=== PATIENT | male | born 1935 | race Caucasian/White ===

== ENCOUNTER 2018-03-04 10:17 | Outpatient (CLI) | payer MEDICARE | END 2018-03-04 10:18 | disposition home or self-care (01) | LOC: CTENTCT 10:17 | PROVIDERS: ATTEND Specialist | DX: J01.80 Other acute sinusitis (principal) | CPT/HCPCS: 70486 ==

== ENCOUNTER 2018-07-02 20:30 | Outpatient (CLI) | payer MEDICARE | END 2018-07-02 20:31 | disposition home or self-care (01) | LOC: SLEEPLAB 20:30 | PROVIDERS: ATTEND Family Medicine | DX: G47.10 Hypersomnia, unspecified (principal); R53.83 Other fatigue; G31.84 Mild cognitive impairment of uncertain or unknown etiology; K21.9 Gastro-esophageal reflux disease without esophagitis; F41.9 Anxiety disorder, unspecified; G47.00 Insomnia, unspecified; I10 Essential (primary) hypertension; I25.10 Atherosclerotic heart disease of native coronary artery without angina pectoris; I21.9 Acute myocardial infarction, unspecified | CPT/HCPCS: 95811 ==

== ENCOUNTER 2018-10-11 09:34 | Emergency (ER) | payer MEDICARE | END 2018-10-11 10:39 | disposition left against medical advice (07) | LOC: ERS 09:34 | DX: Z53.21 Procedure and treatment not carried out due to patient leaving prior to being seen by health care provider (principal) ==

== ENCOUNTER 2019-08-01 10:01 | Emergency (ER) | payer MEDICARE | END 2019-08-01 10:55 | disposition home or self-care (01) | LOC: ERS 10:01 | DX: B02.9 Zoster without complications (principal); E11.9 Type 2 diabetes mellitus without complications; K21.9 Gastro-esophageal reflux disease without esophagitis; E78.5 Hyperlipidemia, unspecified; I10 Essential (primary) hypertension; Z79.899 Other long term (current) drug therapy | CPT/HCPCS: 99282 ==

== ENCOUNTER 2019-09-02 12:34 | Outpatient (CLI) | payer MEDICARE ==
--- NOTE | 2019-09-02 12:53 | RAD ---
XR Chest Pa Lat STANDARD HISTORY: Cough COMPARISON: 06/08/2017 FINDINGS: The heart size is borderline. The lungs are well expanded without focal areas of consolidat ion, pneumothorax or pleural effusions. Chronic parenchymal changes are again seen. IMPRESSION: No radiographic evidence of acute cardiopulmonary process.
== END 2019-09-02 12:35 | disposition home or self-care (01) ==
LOC: BICRAD 12:34
PROVIDERS: ATTEND Family Medicine
DX: R05 Cough (principal)
CPT/HCPCS: 71046

== ENCOUNTER 2019-09-18 11:17 | Emergency (ER) | payer MEDICARE ==
[2019-09-18] MEDS ORDERED: Bacitracin 1 PK ONE (12:20)
[2019-09-18] MEDS ORDERED: Adacel (T-DAP) 0.5 ML SYRINGE ONE (12:23)
--- NOTE | 2019-09-18 12:54 | RAD ---
RIGHT HAND 3 VIEWS: INDICATION: Trauma. FINDINGS: Carpals appear intact. Degenerative change at the 1st carpometacarpal joint. Mild narrowing and DJD at the MCP and IP joints most prominent at the DIP joints. No fracture or acute abnormality. POS: OFF
== END 2019-09-18 12:45 | disposition home or self-care (01) ==
LOC: ERS 11:17
DX: S60.221A Contusion of right hand, initial encounter (principal); S61.401A Unspecified open wound of right hand, initial encounter; S80.211A Abrasion, right knee, initial encounter; E11.9 Type 2 diabetes mellitus without complications; K21.9 Gastro-esophageal reflux disease without esophagitis; I49.9 Cardiac arrhythmia, unspecified; E78.5 Hyperlipidemia, unspecified; E78.00 Pure hypercholesterolemia, unspecified; I10 Essential (primary) hypertension; Z79.899 Other long term (current) drug therapy; Z79.84 Long term (current) use of oral hypoglycemic drugs; W18.30XA Fall on same level, unspecified, initial encounter
CPT/HCPCS: 90471; 90715; 99283

== ENCOUNTER 2020-06-06 19:21 | Inpatient (IN) | payer MEDICARE, OTHER ==
[~2020-06-06 19:21] MED LIST: Iopamidol-370 76% 500 ML 1 ML ONE
[2020-06-06] MEDS ORDERED: Sucralfate 1 GM/10 ML UDCUP ONE (19:47)
[2020-06-06] MEDS ORDERED: Ondansetron PF 4 MG/2 ML Vial ONE (19:47)
[2020-06-06 19:52] LABS: #Basophils 0.1 thou/uL (0.0-0.2); #Lymphocytes 1.6 thou/uL (1.20-3.40); #Monocytes 0.7 thou/uL (0.11-0.59); #Neutrophils 5.5 thou/uL (1.40-6.50); %Basophils 0.7 % (0.0-1.0); %Eosinophils 0.4 % (0.0-10.0); %Monocytes 8.7 % (0.0-10.0); %Neutrophils 70.2 % (42.0-75.0); Hemoglobin 14.7 g/dL (14.0-18.0); Mean Corpuscular HGB CONC 33.9 g/dL (32.0-36.0); Mean Corpuscular Hemoglobin 32.3 pg (27.0-31.0); Mean Corpuscular Volume 95.1 fL (78.0-98.0); Mean Platelet Volume 7.8 fL (7.4-10.4); Platelet Count 281 thou/uL (130-400); RBC Distribution Width 11.6 % (11.5-14.5); Red Blood Cell (RBC) Count 4.57 mill/uL (4.70-6.10); White Blood Cell (WBC) Count 7.8 thou/uL (4.8-10.8)
[2020-06-06 20:17] LABS: ALT (SGPT) 14 U/L (8-55); AST (SGOT) 21 U/L (5-34); Albumin 3.8 g/dL (3.4-4.8); Alkaline Phosphatase 91 U/L (40-110); Anion Gap 14 mmol/L (10-20); BUN (Urea Nitrogen) 22 mg/dL (8.4-25.7); Bilirubin, Total 0.7 mg/dL (0.2-1.2); Calc. Creatinine Clearance 0 mL/min (70-130); Calcium 9.4 mg/dL (7.8-10.44); Carbon Dioxide 23 mmol/L (23-31); Chloride 103 mmol/L (98-107); Estimated GFR-MDRD 76; Globulin 3.3 g/dL (2.4-3.5); Glucose 139 mg/dL (83-110); Lipase 19 U/L (8-78); Potassium 3.8 mmol/L (3.5-5.1); Protein, Total 7.1 g/dL (5.8-8.1); Sodium 136 mmol/L (136-145)
--- NOTE | 2020-06-06 20:48 | CT ---
CT abdomen and pelvis with IV contrast HISTORY: Abdomen pain. Nausea. Vomiting. FINDINGS: Calcification throughout the coronary arteries and other arterial structures. Significant s tenoses at the origins of the celiac trunk and superior mesenteric artery. Small hiatal hernia. There is a 0.2 cm calculus within a nondilated calyx at the central portion of the left kidney. A 2.5 cm cyst involves the anterior lateral left renal cortex. Large amount of stool is present within the mid to distal colon and rectum. Involving the right colon and proximal transverse colon, there is circumferential wall thickening and decompression with minimal adjacent fat stranding. No focal mass is evident. No evidence of bowel obstruction. IMPRESSION : Long segment mild inflammation appearance of the right colon and proximal transverse colon. Cause for long segment colitis is not evident. Possible infection? Constipation. Prominent atherosclerosis. 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 Small hiatal hernia. Tiny nonobstructing right renal calculus.
[2020-06-06 21:14] LABS: Bilirubin Negative (Negative); Blood, Urine Negative (Negative); Clarity Clear (Clear); Glucose, Urine (Dipstick) Normal (Negative); Ketone, Urine Negative (Negative); Leukocyte Negative Leu/uL (Negative); Nitrite Negative (Negative); Protein, Urine (Dipstick) Negative (Neg-Trace); Specific Gravity, Urine 1.029 (1.002-1.036); Urobilinogen Normal mg/dL (Less than 2)
[2020-06-06] MEDS ORDERED: metroNIDAZOLE 500 MG/100 ML BAG ONE (22:04)
[2020-06-06] MEDS ORDERED: Bisacodyl 5 MG TAB PO PRN (22:58)
[2020-06-06] MEDS ORDERED: Senokot S 8.6-50 MG TAB PO PRN (22:58)
[2020-06-06] MEDS ORDERED: HYDROmorphone 0.5 MG/0.5 ML SYRINGE SLOW IVP PRN (23:03)
[2020-06-06] MEDS ORDERED: Dextrose 5% in Water 1,000 ML IV PRN (23:07)
[2020-06-06] MEDS ORDERED: Dextrose 50% Abboject 50 ML SYRINGE SLOW IVP PRN (23:07)
[2020-06-06] MEDS ORDERED: Insulin Regular 300 UNITS/3 ML VIAL SC PRN (23:07)
--- NOTE | 2020-06-07 02:00 | HP ---
REASON FOR ADMISSION: Abdominal pain. HISTORY OF PRESENT ILLNESS: This is an 85-year-old male patient, who has been having abdominal pain and presented to the emergency room approximately 5 days ago with nausea and vomiting, did receive IV antiemetics, felt better, was sent home and has been doing well until today. He had recurrence of his symptoms. Also abdominal pain described as cramping in nature involving his whole abdomen. He is somewhat of a poor historian. He reports to me that his last bowel movement was three days ago. In the emergency room, a CAT scan did reveal possible colitis and patient did have two bowel movements. I did inspect the last one and I did not see any blood in the stool. PAST MEDICAL HISTORY: 1. Diabetes. 2. GERD. 3. High cholesterol. 4. Arrhythmia/bradycardia. 5. High blood pressure. 6. Memory issues. ALLERGIES: TO CODEINE. SOCIAL HISTORY: He drinks socially. Does not smoke. REVIEW OF SYSTEMS: All systems reviewed except for the above mentioned, found to be negative. FAMILY HISTORY: Negative for premature coronary artery disease. PHYSICAL EXAMINATION: GENERAL: He is awake, alert, oriented, does not appear in distress. VITAL SIGNS: His blood pressure is 140/84, pulse is 55, saturating 96% on room air. HEENT: Head is nontraumatic, normocephalic. Pupils equal, reactive. Extraocular motors are intact. Nonicteric sclerae. Well injected conjunctivae. Oral mucosa normal. Nasal mucosa normal. NECK: Supple. No adenopathy. No murmur. Thyroid is not palpable. Trachea is midline. No supraclavicular adenopathy. HEART: S1, S2 regular. Systolic murmur is heard. LUNGS: Clear to auscultation bilaterally. No wheezes, rhonchi, no crackles. Bowel sounds are decreased. ABDOMEN: Tender but overall soft. No hepatosplenomegaly. No lower extremity edema. No cyanosis noted. NEUROLOGIC: Cranial nerves 2 through 12 within normal limits. Normal motor function. Normal sensory function. Normal reflexes. LABORATORY DATA: Blood work shows WBC 7.8, hemoglobin of 14.7, and platelets of 281. Sodium of 136, potassium 3.8, bicarb 23, creatinine 0.94, glucose 139. Urinalysis does not show any evidence of infection. CT of the abdomen shows long segment mild inflammation in the appearance of right colon and proximal transverse colon. Cause for long segment colitis is not evident. Possible infection. Constipation. Prominent atherosclerosis. 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 Small hiatal hernia. Tiny nonobstructing right renal calculus. EKG shows sinus bradycardia. On the monitor, he does have a lot of PVCs and PACs. ASSESSMENT AND PLAN: This is an 85-year-old male patient, who is presenting with abdominal pain secondary to possible colitis. Incidental finding of probable stenosis of celiac and mesenteric artery. Currently feeling much better after moving his bowels twice. He was constipated and does take Amitiza at home, which makes me to believe that he has chronic constipation. GI: The patient has possible colitis. We will cover him with IV Cipro and Flagyl and in case it is ischemic colitis, we will have him on IV fluids. Since the CAT scan did mention probable stenosis of the celiac and mesenteric artery, we will have a consultation for vascular surgery. Cardiac: The patient is bradycardic and maybe has some form of block. He is followed by Dr. Morales. We will consult him to weigh in on his bradycardia. We will continue with amlodipine for his high blood pressure since it does not affect the heart rate. In regard to his diabetes, he will be on insulin sliding scale and we will maintain him on levothyroxine. I will hold glipizide since he will be n.p.o. In regards of his mild dementia, will continue with Aricept. For deep venous thrombosis prophylaxis, he will be on Lovenox subcutaneously. I did discuss with him his code status. He wishes to be a full code. Job ID: [id number]
[2020-06-07 02:18] LABS: #Basophils 0.1 thou/uL (0.0-0.2); #Lymphocytes 0.9 thou/uL (1.20-3.40); #Neutrophils 9.5 thou/uL (1.40-6.50); %Basophils 0.4 % (0.0-1.0); %Eosinophils 0.1 % (0.0-10.0); %Lymphocytes 8.2 % (21.0-51.0); %Monocytes 8.9 % (0.0-10.0); %Neutrophils 82.5 % (42.0-75.0); Hemoglobin 14.7 g/dL (14.0-18.0); Mean Corpuscular HGB CONC 35.3 g/dL (32.0-36.0); Mean Corpuscular Hemoglobin 33.4 pg (27.0-31.0); Mean Corpuscular Volume 94.9 fL (78.0-98.0); Mean Platelet Volume 7.4 fL (7.4-10.4); Platelet Count 238 thou/uL (130-400); RBC Distribution Width 11.6 % (11.5-14.5); Red Blood Cell (RBC) Count 4.38 mill/uL (4.70-6.10); White Blood Cell (WBC) Count 11.5 thou/uL (4.8-10.8)
[2020-06-07] MEDS: Sodium Chloride 0.9% 1,000 ML IV SCH ×2 (02:29→17:16)
[2020-06-07 03:32] LABS: Anion Gap 13 mmol/L (10-20); BUN (Urea Nitrogen) 19 mg/dL (8.4-25.7); Calc. Creatinine Clearance 60 mL/min (70-130); Calcium 8.5 mg/dL (7.8-10.44); Carbon Dioxide 23 mmol/L (23-31); Chloride 104 mmol/L (98-107); Estimated GFR-MDRD 78; Glucose 156 mg/dL (83-110); Potassium 3.2 mmol/L (3.5-5.1); Sodium 137 mmol/L (136-145)
[2020-06-07] MEDS ORDERED: Polyethylene Glycol 3350 17 GM Packet PO PRN (04:10)
[2020-06-07] MEDS ORDERED: Loratadine 10 MG TAB PO PRN (04:10)
[2020-06-07] MEDS: Levothyroxine Sodium 50 MCG TAB PO SCH (05:54)
[2020-06-07] MEDS: metroNIDAZOLE 500 MG in Premix Bag 1 BAG IVPB SCH ×3 (05:54→21:14)
--- NOTE | 2020-06-07 08:12 | PDOC.HOSPP ---
- Subjective Encounter Date: 06/07/20 Encounter Time: 08:11 Subjective: says he hasnt been able to eat for days/weeks due to anorexia. says hasnt had BM because he cant eat - Objective Vital Signs & Weight: Vital Signs (12 hours) Temp Pulse Resp BP Pulse Ox 06/07/20 07:30 97.6 F 62 18 148/67 H 96 06/07/20 03:23 98.4 F 48 L 20 127/62 97 06/07/20 01:15 96.3 F L 68 20 126/59 L 95 Weight Weight 162 lb 8 oz I&O: 06/06/20 06/07/20 06/08/20 06:59 06:59 06:59 Intake Total 320 Output Total 225 Balance 95 Result Diagrams: 06/07/20 02:12 06/07/20 02:12 Additional Labs: Accuchecks 06/07/20 06/06/20 06:08 20:00 POC Glucose 123 H 135 H Hospitalist ROS - Medication Medications: Active Medications Generic Name Dose Route Start Last Admin Trade Name Edwina PRN Reason Stop Dose Admin Metronidazole 500 mg/ Device 100 mls @ 100 mls/hr 06/07/20 06:00 06/07/20 05: 54 IVPB 100 mls Q8HR TRACEY Administration Sodium Chloride 1,000 mls @ 75 mls/hr 06/06/20 23:59 06/07/20 02:29 Normal Saline 0.9% IV 1,000 mls .[id number] TRACEY Administration Levothyroxine Sodium 50 mcg 06/07/20 06:00 06/07/20 05:54 Synthroid PO 50 mcg 0600 TRACEY Administration - Exam General Appearance: awake alert General - other findings: oriented x 3 Neck: no JVD Heart: no murmur, irregular Respiratory: CTAB Gastrointestinal: soft, non-tender, normal bowel sounds, no hepatomegaly, no splenomegaly, no bruit Extremities: no edema Hosp A/P (1) Colitis Code(s): K52.9 - NONINFECTIVE GASTROENTERITIS AND COLITIS, UNSPECIFIED Status : Acute (2) Anorexia Code(s): R63.0 - ANOREXIA Status: Acute (3) Bradyarrhythmia Code(s): I49.8 - OTHER SPECIFIED CARDIAC ARRHYTHMIAS Status: Acute (4) Second degree heart block Code(s): I44.1 - ATRIOVENTRICULAR BLOCK, SECOND DEGREE Status: Acute (5) HTN (hypertension) Code(s): I10 - ESSENTIAL (PRIMARY) HYPERTENSION Status: Acute Qualifiers: Hypertension type: essential hypertension Qualified Code(s): I10 - Essential (primary) hypertension (6) DM type 2 (diabetes mellitus, type 2) Status: Acute Qualifiers: Diabetes mellitus bed bug exterminator insulin use: without bed bug exterminator use Diabetes mellitus complication status: without complication Qualified Code(s): E11.9 - Type 2 diabetes mellitus without complications - Plan will cont antibx for colitis at present Cardiology for bradyarrthmia cont accu/ss for the present
[2020-06-07] MEDS: Ondansetron PF 4 MG/2 ML Vial IVP PRN (08:16)
[2020-06-07] MEDS: Enoxaparin Sodium 40 MG/0.4 ML SYRINGE SC SCH (08:17)
[2020-06-07] MEDS: Lubiprostone 8 MCG CAP PO SCH ×2 (08:25→17:16)
[2020-06-07 13:19] LABS: SARS-CoV-2 MS2 Positive; SARS-CoV-2 N Gene Negative; SARS-CoV-2 S Gene Negative; SARS-CoV-2 by NAA Not Detected (NotDetected); SARS-CoV-2 orf1ab Negative
[2020-06-07] MEDS: Amlodipine 5 MG TAB PO SCH (19:37)
--- NOTE | 2020-06-07 20:29 | CON ---
DATE OF CONSULTATION: 06/07/2020 REASON FOR CONSULTATION: Bradycardia. HISTORY OF PRESENT ILLNESS: Mr. John is a very pleasant 85-year-old gentleman, admitted with abdominal discomfort. He states that he does not want to eat. He has a vague discomfort in the lower abdominal area and thought to have some colitis. He is being treated with antibiotics. The patient has also had significant bradycardia as will be outlined below. He has no chest pain or pressure. No lightheadedness. No syncope or near syncope. The patient has a history of long first-degree AV block, history of diabetes, history of mild mitral regurgitation. The patient has history of premature ventricular contraction. Medications as an outpatient, he was on no medications to slow the heart rate. Previous echocardiogram and stress testing, he did have a stress test in 2016, which was a normal nuclear medicine stress test. MEDICATIONS: 1. Atorvastatin. 2. Amlodipine. 3. Losartan-HCT. REVIEW OF SYSTEMS: GENERAL: He has lost some weight, otherwise negative. VISION: No changes. HEARING: No changes. PULMONARY: No cough or wheezing. CARDIAC: No chest pain. GASTROINTESTINAL: As outlined above. PHYSICAL EXAMINATION: GENERAL: This is a very pleasant, 85-year-old gentleman, resting comfortably. He said he has a vague discomfort in his lower abdomen. VITAL SIGNS: Blood pressure 162/74, pulse is 40. NECK: Veins are normal. Carotid, normal upstrokes. LUNGS: Clear. CARDIAC: Normal S1, normal S2. He is bradycardic. ABDOMEN: Soft and nontender. EXTREMITIES: Warm and dry. No clubbing. No cyanosis. No edema. DIAGNOSTIC STUDIES: Previous EKG, sinus rhythm with a first-degree AV block, the EKG done in December 14, the heart rate was 62, the KS interval was 350 milliseconds. EKG now, the patient has some periods of second-degree AV block, type 1. Sometimes the heart rate gets down to the 40s, some 2:1 AV block. ASSESSMENT: 1. Bradycardia. 2. AV florentino disease with normal QRS. 3. Abdominal pain, thought to be a mild colitis. 4. Mild coronary artery disease. Catheterization in 2003 had minimal nonobstructive plaque. PLAN: 1. Echocardiogram. 2. We will discuss with Dr. Woodson, with a narrow QRS, he will be pacing the ventricle consistently, the question is whether the patient should could be considered with that having His bundle pacer or standard pacemaker or even biventricular based on the current criteria, if ejection fraction is normal, biventricular would not be indicated, consideration for His bundle could be given, we will ask Dr. Woodson to see the patient. Job ID: [id number]
[2020-06-07] MEDS: Donepezil HCl 10 MG TAB PO SCH (21:05)
[2020-06-07] MEDS: Citalopram 10 MG TAB PO SCH (21:07)
[2020-06-08 00:43] LABS: Anion Gap 10 mmol/L (10-20); Carbon Dioxide 24 mmol/L (23-31); Chloride 102 mmol/L (98-107); Magnesium 1.8 mg/dL (1.6-2.6); Sodium 133 mmol/L (136-145)
[2020-06-08 00:45] LABS: Potassium 2.9 mmol/L (3.5-5.1)
[2020-06-08] MEDS ORDERED: Potassium Chloride 40 MEQ in Premix Bag 1 BAG IVPB SCH (01:15)
[2020-06-08] MEDS ORDERED: Potassium Chloride 20 MEQ in Premix Bag 1 BAG IVPB SCH (01:30)
[2020-06-08] MEDS ORDERED: Acetaminophen 325 MG TAB PO PRN (03:27)
[2020-06-08] MEDS ORDERED: Potassium Chloride 20 MEQ TAB PO SCH (03:30)
[2020-06-08] MEDS: Sodium Chloride 0.9% 1,000 ML IV SCH ×2 (05:22→17:40)
[2020-06-08] MEDS: Levothyroxine Sodium 50 MCG TAB PO SCH (05:31)
[2020-06-08] MEDS: metroNIDAZOLE 500 MG in Premix Bag 1 BAG IVPB SCH ×3 (05:31→22:05)
[2020-06-08 07:47] LABS: Anion Gap 13 mmol/L (10-20); BUN (Urea Nitrogen) 10 mg/dL (8.4-25.7); Calc. Creatinine Clearance 72 mL/min (70-130); Calcium 8.5 mg/dL (7.8-10.44); Carbon Dioxide 20 mmol/L (23-31); Chloride 105 mmol/L (98-107); Estimated GFR-MDRD Greater than 90; Glucose 107 mg/dL (83-110); Magnesium 1.9 mg/dL (1.6-2.6); Potassium 3.5 mmol/L (3.5-5.1); Sodium 134 mmol/L (136-145)
--- NOTE | 2020-06-08 07:58 | PDOC.HOSPP ---
- Subjective Encounter Date: 06/08/20 Encounter Time: 07:56 Subjective: resting comfortably. no nausea, abd pain, diarrhea - Objective Vital Signs & Weight: Vital Signs (12 hours) Temp Pulse Resp BP Pulse Ox 06/08/20 07:07 97.9 F 53 L 18 164/80 H 96 06/08/20 04:00 152/75 H 06/08/20 00:00 60 28 H 138/78 94 L 06/07/20 19:57 95 Weight Admit Weight 162 lb 8 oz Weight 158 lb 11.2 oz I&O: 06/07/20 06/08/20 06/09/20 06:59 06:59 06:59 Intake Total 320 390 Output Total 225 2350 Balance 95 -1960 Result Diagrams: 06/07/20 02:12 06/08/20 07:19 Additional Labs: Accuchecks 06/08/20 06/08/20 06/07/20 06:01 00:11 17:24 POC Glucose 124 H 130 H 104 06/07/20 12:13 POC Glucose 130 H Hospitalist ROS - Medication Medications: Active Medications Generic Name Dose Route Start Last Admin Trade Name Freq PRN Reason Stop Dose Admin Acetaminophen 650 mg 06/08/20 03:27 06/08/20 03:42 Tylenol PO 650 mg Q4H PRN Administration Headache/Fever or Pain Amlodipine Besylate 5 mg 06/07/20 21:00 06/07/20 19:37 Norvasc PO 5 mg HS TRACEY Administration Citalopram Hydrobromide 10 mg 06/07/20 21:00 06/07/20 21:07 Celexa PO 10 mg HS TRACEY Administration Donepezil HCl 10 mg 06/07/20 21:00 06/07/20 21:05 Aricept PO 10 mg HS TRACEY Administration Enoxaparin Sodium 40 mg 06/07/20 09:00 06/07/20 08:17 Lovenox SC 40 mg 0900 TRACEY Administration Ciprofloxacin/Dextrose 400 mg/ 200 mls @ 200 mls/hr 06/07/20 11:00 06/07/20 22:40 Device IVPB 200 mls 1100,2300 TRACEY Administration Metronidazole 500 mg/ Device 100 mls @ 100 mls/hr 06/07/20 06:00 06/08/20 05: 31 IVPB 100 mls Q8HR TRACEY Administration Sodium Chloride 1,000 mls @ 75 mls/hr 06/06/20 23:59 06/08/20 05:22 Normal Saline 0.9% IV 1,000 mls .[id number] TRACEY Administration Levothyroxine Sodium 50 mcg 06/07/20 06:00 06/08/20 05:31 Synthroid PO 50 mcg 0600 TRACEY Administration Lubiprostone 8 mcg 06/07/20 08:00 06/07/20 17:16 Amitiza PO Not Given BID-WM TRACEY Ondansetron HCl 4 mg 06/06/20 23:05 06/07/20 08:16 Zofran IVP 4 mg Q6H PRN Administration Nausea/Vomiting Pantoprazole Sodium 40 mg 06/07/20 09:00 06/07/20 08:17 Protonix PO 40 mg DAILY TRACEY Administration - Exam General Appearance: awake alert Neck: no JVD Heart: no murmur, irregular Respiratory: CTAB Gastrointestinal: soft, non-tender, non-distended, normal bowel sounds Extremities: no edema Hosp A/P (1) Colitis Code(s): K52.9 - NONINFECTIVE GASTROENTERITIS AND COLITIS, UNSPECIFIED Status : Acute (2) Anorexia Code(s): R63.0 - ANOREXIA Status: Acute (3) Bradyarrhythmia Code(s): I49.8 - OTHER SPECIFIED CARDIAC ARRHYTHMIAS Status: Acute (4) Second degree heart block Code(s): I44.1 - ATRIOVENTRICULAR BLOCK, SECOND DEGREE Status: Acute (5) HTN (hypertension) Code(s): I10 - ESSENTIAL (PRIMARY) HYPERTENSION Status: Acute Qualifiers: Hypertension type: essential hypertension Qualified Code(s): I10 - Essential (primary) hypertension (6) DM type 2 (diabetes mellitus, type 2) Status: Acute Qualifiers: Diabetes mellitus long term care social worker insulin use: without long term care social worker use Diabetes mellitus complication status: without complication Qualified Code(s): E11.9 - Type 2 diabetes mellitus without complications - Plan appreciate cardiology input- Dr Woodson EP, to see re pacemaker will cont antibx for colitis at present cont accu/ss for the present
[2020-06-08] MEDS: Enoxaparin Sodium 40 MG/0.4 ML SYRINGE SC SCH (08:25)
[2020-06-08] MEDS: Lubiprostone 8 MCG CAP PO SCH ×2 (08:25→18:09)
--- NOTE | 2020-06-08 09:27 | PDOC.FMACP ---
Advance Care Planning - Problem (1) Palliative care encounter Status: Acute Code(s): Z51.5 - ENCOUNTER FOR PALLIATIVE CARE (2) Anorexia Status: Acute Code(s): R63.0 - ANOREXIA (3) Bradyarrhythmia Status: Acute Code(s): I49.8 - OTHER SPECIFIED CARDIAC ARRHYTHMIAS (4) Colitis Status: Acute Code(s): K52.9 - NONINFECTIVE GASTROENTERITIS AND COLITIS, UNSPECIFIED (5) HTN (hypertension) Status: Acute Code(s): I10 - ESSENTIAL (PRIMARY) HYPERTENSION Qualifiers: Hypertension type: essential hypertension Qualified Code(s): I10 - Essential (primary) hypertension (6) Second degree heart block Status: Acute Code(s): I44.1 - ATRIOVENTRICULAR BLOCK, SECOND DEGREE - Note Participants: patient, palliative care Summary: Palliative care introduced Advanced Care Planning, opportunity to decline offered. The diagnosis, prognosis and goals of care were discussed. Appropriate forms and documentation to accomplish the goals of care were discussed. All questions were answered. Confirmed full resuscitation status, patient declined to complete MPOA as his son would be his surrogate decision maker. Information provided in the event they elected to complete MPOA and Directive to Physician. Time Spent (mins): 20
--- NOTE | 2020-06-08 16:31 | CON ---
DATE OF CONSULTATION: 06/08/2020 HISTORY OF PRESENT ILLNESS: I am seeing Mr. John at our [facility] Telemetry Floor as an electrophysiology reimbursement consultant and his problems are : 1. Marked bradycardia. a. Long history of first-degree AV block. b. Episodic progression of complete AV block with junctional escape is noted. 2. Nonsustained wide-complex tachycardia, possibly earl dependent. 3. History of diabetes. 4. Hypertension. 5. Dementia. ALLERGIES: CODEINE. MEDICATIONS: At home included: 1. Polyethylene glycol. 2. Aricept. 3. Zyrtec. 4. Celexa. 5. Norvasc. 6. Omeprazole. 7. Glimepiride. 8. Levoxyl. 9. Amitiza. SUBJECTIVE: Mr. John is a poor historian. Most history obtained from the chart, but at this point, he does not voice any dyspnea and denies loss of consciousness episodes. It seems he has been presenting with abdominal discomfort 5 days ago with nausea, vomiting. Initially, he was sent home on antiemetics, but recurrence of symptoms from his readmission. He nausea and vomiting was about 3 days ago. Colitis is suspected. The patient does not volunteer any of the history to me. Currently, no symptoms of fevers or chills. No stroke-like symptoms. No neurological deficits and rest of 12-point review of systems is otherwise unremarkable. PAST HISTORY: As above. Also history of high cholesterol. SOCIAL HISTORY: The patient drinks socially. Denies smoking. No EKG abuse. FAMILY HISTORY: Noncontributory. OBJECTIVE DATA: VITAL SIGNS: Blood pressure currently 160/80, heart rate 53, respiratory rate is 18, temperature 97.9 degrees Fahrenheit. GENERAL: He is alert, oriented x2 man, in no apparent distress. NECK: Supple. Jugular veins not distended. CHEST: Coarse with crackles. HEART: Sounds are regular rate and rhythm. No murmur or gallop. ABDOMEN: Benign. Bowel sounds positive. EXTREMITIES: Lower extremity without edema, clubbing, or cyanosis. Pulses are adequate. NEUROLOGIC: The patient is nonfocal. MUSCULOSKELETAL: Without joint deformity. SKIN: Without rash. DATABASE: EKG reveals sinus rhythm/bradycardia with Mobitz type 1 first-degree AV block with episodic junctional escape is not ruled out in the beginning of this strip, possible high-degree AV block. Similar pattern repeat from EKG, heart rate in the 30s to 40s. Nonsustained wide-complex tachycardia run is seen up to 12 beats . QTc on initial EKG was 364. LABORATORY DATA: White cell count 7.5, hemoglobin 20.7, platelet count is 238. Sodium 134, potassium 3.5, BUN is 10, creatinine 0.75. ASSESSMENT AND PLAN: Mr. John is an 85-year-old man with history of hypertension, diabetes, also history of first degree AV block in the past. He is presenting with marked bradycardia without any AV florentino blocking agents on board. He does have some neural discomfort, which could increase his vagal tone periodically. His symptoms are somewhat difficult to elicit, hence, he presents with baseline dementia. 1. I think consideration of pacing is a reasonable option for this gentleman, especially in view of the possible bradycardia dependent nonsustained ventricular arrhythmias. He might benefit from beta-dejah therapy after adequate pacing backup. Depending on his LV systolic function on the pending echo, dual chamber His pacing, BiV or LV lead adjusted BiV pacemaker is a consideration. 2. History of hypothyroidism, on replacement with elevated TSH. 3. Hypertension, suboptimal control. 4. Dementia. 5. Colitis as per primary team seems to be resolving. Addendum. :LVEF completely normal. Dual PPM with high septal RV lead planned. Job ID: [id number] MTDD
[2020-06-08] MEDS: Amlodipine 5 MG TAB PO SCH (22:00)
[2020-06-08] MEDS: Citalopram 10 MG TAB PO SCH (22:01)
[2020-06-08] MEDS: Donepezil HCl 10 MG TAB PO SCH (22:01)
[2020-06-09] MEDS: Levothyroxine Sodium 50 MCG TAB PO SCH (05:22)
[2020-06-09] MEDS: metroNIDAZOLE 500 MG in Premix Bag 1 BAG IVPB SCH ×3 (05:23→21:22)
[2020-06-09] MEDS: Sodium Chloride 0.9% 1,000 ML IV SCH ×2 (05:49→16:32)
[2020-06-09] MEDS: Lubiprostone 8 MCG CAP PO SCH ×2 (08:32→16:32)
[2020-06-09] MEDS: Enoxaparin Sodium 40 MG/0.4 ML SYRINGE SC SCH (08:32)
[2020-06-09] MEDS ORDERED: EPHEDRINE 25 MG/5 ML SYRINGE ONE (09:40)
--- NOTE | 2020-06-09 10:07 | PRG ---
DATE OF SERVICE: 06/09/2020 SUBJECTIVE: Mr. John is overall doing okay. He has had some AV block 2:1 with the heart rates in the 30s. He is scheduled for pacemaker insertion today. I discussed the pacemaker indication with the patient's son yesterday. I explained the procedure and rationale and risks and benefits. This includes risk of bleeding, infection, lung, lead dislodgement. He understood and wished to proceed. On exam. OBJECTIVE: VITAL SIGNS: Today his blood pressure is 180/70, pulse is recorded as 40, sometimes it is in the 30s. LUNGS: Clear. CARDIAC: Bradycardic. ABDOMEN: Soft and nontender. ASSESSMENT: 1. Colitis appears improving clinically. 2. Atrioventricular block, scheduled for dual-chamber pacemaker today. Job ID: [id number]
[2020-06-09] MEDS ORDERED: CEFAZOLIN 1 GM VIAL ONE (10:43)
[2020-06-09] MEDS ORDERED: Gentamicin 80 MG/2 ML VIAL ONE (10:44)
[2020-06-09] MEDS ORDERED: Propofol 1,000 MG/100 ML VIAL IV ONE (12:07)
[2020-06-09] MEDS ORDERED: Fentanyl 100 MCG/2 ML VIAL ONE (12:24)
[2020-06-09] MEDS ORDERED: Lidocaine 1% (PF) 30 ML VIAL ONE (12:46)
[2020-06-09] MEDS ORDERED: Iopamidol 370 76% 50 ML VIAL FS ONE (13:26)
--- NOTE | 2020-06-09 14:33 | RAD ---
Exam: Chest one view HISTORY:Status post pacemaker placement. Comparison: 06/03/2020 FINDINGS: Cardiac silhouette:Stable cardiac silhouette Aorta: Stable atherosclerosis Pacemaker: Interval placement of left-sided transvenous pacemaker with lead positioned over the right atrium and right ventricle.: Pulmonary vessels: Normal Costophrenic angles: Clear LUNGS: No masses or consolidation. Chronic lung parenchymal changes. Pneumothorax: None Osseous abnormalities: None IMPRESSION: 1. Atherosclerosis 2. Interval placement of a left-sided transvenous pacemaker. No pneumothorax. 3. Chronic lung parenchymal changes.
[2020-06-09 15:10] VITALS: BMI 25.3
--- NOTE | 2020-06-09 16:17 | PDOC.HOSPP ---
- Subjective Encounter Date: 06/09/20 Encounter Time: 15:45 - Objective Vital Signs & Weight: Vital Signs (12 hours) Temp Pulse Resp BP Pulse Ox 06/09/20 15:02 98.1 F 73 14 179/82 H 96 06/09/20 08:00 97.6 F 43 L 16 180/79 H 96 06/09/20 04:00 97.5 F L 43 L 20 97 Weight Admit Weight 162 lb 8 oz Weight 161 lb 14.4 oz I&O: 06/08/20 06/09/20 06/10/20 06:59 06:59 06:59 Intake Total 390 3225 Output Total 2350 2075 Balance -1960 1150 Result Diagrams: 06/07/20 02:12 06/08/20 07:19 Additional Labs: Accuchecks 06/09/20 06/08/20 06/08/20 05:37 20:34 16:42 POC Glucose 112 H 117 H 118 H EKG Reviewed by me: Yes (Tele - paced in 70's) Hospitalist ROS - Medication Medications: Active Medications Generic Name Dose Route Start Last Admin Trade Name Freq PRN Reason Stop Dose Admin Acetaminophen 650 mg 06/08/20 03:27 06/08/20 03:42 Tylenol PO 650 mg Q4H PRN Administration Headache/Fever or Pain Amlodipine Besylate 5 mg 06/07/20 21:00 06/08/20 22:00 Norvasc PO 5 mg HS TRACEY Administration Citalopram Hydrobromide 10 mg 06/07/20 21:00 06/08/20 22:01 Celexa PO 10 mg HS TRACEY Administration Donepezil HCl 10 mg 06/07/20 21:00 06/08/20 22:01 Aricept PO 10 mg HS TRACEY Administration Ciprofloxacin/Dextrose 400 mg/ 200 mls @ 200 mls/hr 06/07/20 11:00 06/09/20 11:11 Device IVPB Not Given 1100,2300 TRACEY Metronidazole 500 mg/ Device 100 mls @ 100 mls/hr 06/07/20 06:00 06/09/20 13: 54 IVPB Not Given Q8HR TRACEY Sodium Chloride 1,000 mls @ 75 mls/hr 06/06/20 23:59 06/09/20 05:49 Normal Saline 0.9% IV Not Given .[id number] TRACEY Levothyroxine Sodium 50 mcg 06/07/20 06:00 06/09/20 05:22 Synthroid PO 50 mcg 0600 TRACEY Administration Lubiprostone 8 mcg 06/07/20 08:00 06/09/20 08:32 Amitiza PO Not Given [facility] Ondansetron HCl 4 mg 06/06/20 23:05 06/07/20 08:16 Zofran IVP 4 mg Q6H PRN Administration Nausea/Vomiting Pantoprazole Sodium 40 mg 06/07/20 09:00 06/09/20 08:32 Protonix PO Not Given DAILY TRACEY - Exam General Appearance: NAD, awake alert Eye: PERRL, anicteric sclera ENT: normocephalic atraumatic, no oropharyngeal lesions Neck: supple, symmetric, no JVD, no thyromegaly Heart: RRR, no gallops, no rubs, normal peripheral pulses Heart - other findings: S1, S2 Respiratory: CTAB, no wheezes, no rales, no ronchi, normal chest expansion, no tachypnea Gastrointestinal: soft, non-tender, non-distended, normal bowel sounds, no palpable masses Extremities: no cyanosis, no clubbing, no edema Skin: normal turgor, no lesions Neurological: cranial nerve grossly intact, no new deficit Musculoskeletal: normal tone, generalized weakness Psychiatric: normal affect, A&O x 3 Hosp A/P (1) Colitis Code(s): K52.9 - NONINFECTIVE GASTROENTERITIS AND COLITIS, UNSPECIFIED Status : Acute Plan: ? infectious component, improving clinically, continue Cipro/Flagyl, supportive mgmt, advance diet (2) Second degree heart block Code(s): I44.1 - ATRIOVENTRICULAR BLOCK, SECOND DEGREE Status: Acute Plan: s/p PPM today, cardiac monitoring (3) Anorexia Code(s): R63.0 - ANOREXIA Status: Acute Plan: Glucerna TID, start ADA, consider Megace (4) DM type 2 (diabetes mellitus, type 2) Status: Chronic Qualifiers: Diabetes mellitus fpc insulin use: without fpc use Diabetes mellitus complication status: without complication Qualified Code(s): E11.9 - Type 2 diabetes mellitus without complications Plan: ISS/ADA (5) HTN (hypertension) Code(s): I10 - ESSENTIAL (PRIMARY) HYPERTENSION Status: Chronic Qualifiers: Hypertension type: essential hypertension Qualified Code(s): I10 - Essential (primary) hypertension Plan: Labile, resume home BP regimen - Plan plan discussed w/ family, continue antibiotics, 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
--- NOTE | 2020-06-09 16:51 | EKG ---
Test Reason : POST PACEMAKER INSER Blood Pressure : / mmHG Vent. Rate : 073 BPM Atrial Rate : 073 BPM P-R Int : 000 ms QRS Dur : 172 ms QT Int : 466 ms P-R-T Axes : 000 021 -70 degrees QTc Int : 513 ms Dual chamber pacemaker with PVC's Abnormal ECG Confirmed by DR. Debbie LYNN ([id number]) on 06/09/2020 4:51:25 PM Referred By: [facility] Confirmed By:DR. Debbie LYNN
[2020-06-09] MEDS ORDERED: HYDROcodone/Acetaminophen 5/325 mg Tablet PO PRN (17:21)
[2020-06-09] MEDS: Citalopram 10 MG TAB PO SCH (21:20)
[2020-06-09] MEDS: Amlodipine 5 MG TAB PO SCH (21:20)
[2020-06-09] MEDS: Donepezil HCl 10 MG TAB PO SCH (21:21)
[2020-06-09] MEDS: Cephalexin 250 MG CAP PO SCH (21:30)
[2020-06-10] MEDS: Levothyroxine Sodium 50 MCG TAB PO SCH (07:57)
[2020-06-10] MEDS: metroNIDAZOLE 500 MG in Premix Bag 1 BAG IVPB SCH (07:57)
[2020-06-10] MEDS: Sodium Chloride 0.9% 1,000 ML IV SCH (07:59)
[2020-06-10] MEDS: Cephalexin 250 MG CAP PO SCH ×3 (08:56→21:10)
[2020-06-10] MEDS: Lubiprostone 8 MCG CAP PO SCH ×2 (09:06→16:08)
--- NOTE | 2020-06-10 14:04 | PDOC.HOSPP ---
- Subjective Encounter Date: 06/10/20 Encounter Time: 14:00 Subjective: f/u for anorexia, weakness and s/p PM placement due to AVB. - Objective Vital Signs & Weight: Vital Signs (12 hours) Temp Pulse Pulse Pulse Resp BP BP 06/10/20 11:20 97.4 F L 65 10 L 06/10/20 09:34 60 66 151/67 H 144/66 H 06/10/20 08:00 97.9 F 60 16 06/10/20 03:11 97.8 F 72 22 H BP Pulse Ox 06/10/20 11:20 138/69 97 06/10/20 09:34 06/10/20 08:00 150/73 H 96 06/10/20 03:11 147/74 H 96 Weight Admit Weight 162 lb 8 oz Weight 160 lb I&O: 06/09/20 06/10/20 06/11/20 06:59 06:59 06:59 Intake Total 3225 2540 Output Total 2075 1095 Balance 1150 1445 Result Diagrams: 06/07/20 02:12 06/08/20 07:19 Additional Labs: Accuchecks 06/10/20 06/10/20 06/09/20 12:18 05:23 23:42 POC Glucose 151 H 122 H 105 06/09/20 06/09/20 20:21 17:55 POC Glucose 184 H 99 EKG Reviewed by me: Yes (Tele - AV pacing with PAC's) Hospitalist ROS - Medication Medications: Active Medications Generic Name Dose Route Start Last Admin Trade Name Freq PRN Reason Stop Dose Admin Acetaminophen 650 mg 06/08/20 03:27 06/08/20 03:42 Tylenol PO 650 mg Q4H PRN Administration Headache/Fever or Pain Amlodipine Besylate 5 mg 06/07/20 21:00 06/09/20 21:20 Norvasc PO 5 mg HS TRACEY Administration Cephalexin 250 mg 06/09/20 21:00 06/10/20 08:56 Keflex PO 06/16/20 15:01 250 mg TID TRACEY Administration Citalopram Hydrobromide 10 mg 06/07/20 21:00 06/09/20 21:20 Celexa PO 10 mg HS TRACEY Administration Donepezil HCl 10 mg 06/07/20 21:00 06/09/20 21:21 Aricept PO 10 mg HS TRACEY Administration HCTZ/Losartan Potassium 1 tab 06/10/20 12:15 06/10/20 12:52 Hyzaar 50/12.5 PO 06/10/20 15:00 1 tab NOW TRACEY Administration Ciprofloxacin/Dextrose 400 mg/ 200 mls @ 200 mls/hr 06/07/20 11:00 06/10/20 11:03 Device IVPB 200 mls 1100,2300 TRACEY Administration Levothyroxine Sodium 50 mcg 06/07/20 06:00 06/10/20 07:57 Synthroid PO 50 mcg 0600 TRACEY Administration Lubiprostone 8 mcg 06/07/20 08:00 06/10/20 09:06 Amitiza PO Not Given BID-[facility] TRACEY Ondansetron HCl 4 mg 06/06/20 23:05 06/07/20 08:16 Zofran IVP 4 mg Q6H PRN Administration Nausea/Vomiting Pantoprazole Sodium 40 mg 06/07/20 09:00 06/10/20 08:56 Protonix PO 40 mg DAILY TRACEY Administration - Exam General Appearance: NAD, awake alert Eye: PERRL, anicteric sclera ENT: normocephalic atraumatic, no oropharyngeal lesions Neck: supple, symmetric, no JVD, no thyromegaly, no lymphadenopathy Heart: RRR, no gallops, no rubs, normal peripheral pulses Heart - other findings: S1, S2 Respiratory: CTAB, no wheezes, no rales, no ronchi, normal chest expansion Gastrointestinal: soft, non-tender, non-distended, normal bowel sounds, no palpable masses Extremities: no cyanosis, no clubbing, no edema Skin: normal turgor Skin - other findings: R upper chest with PM in place, incision intact Neurological: cranial nerve grossly intact, no new deficit Musculoskeletal: normal tone, generalized weakness Psychiatric: A&O x 3 Hosp A/P (1) Colitis Code(s): K52.9 - NONINFECTIVE GASTROENTERITIS AND COLITIS, UNSPECIFIED Status : Acute Plan: Suspected, convert to po abx today, Diet as tolerated (2) Second degree heart block Code(s): I44.1 - ATRIOVENTRICULAR BLOCK, SECOND DEGREE Status: Acute Plan: s/p PM placement, current AV pacing (3) Anorexia Code(s): R63.0 - ANOREXIA Status: Acute Plan: Improved, continue Glucerna TID (4) DM type 2 (diabetes mellitus, type 2) Status: Chronic Qualifiers: Diabetes mellitus continuous churn buttermaker insulin use: without residential use Diabetes mellitus complication status: without complication Qualified Code(s): E11.9 - Type 2 diabetes mellitus without complications (5) HTN (hypertension) Code(s): I10 - ESSENTIAL (PRIMARY) HYPERTENSION Status: Chronic Qualifiers: Hypertension type: essential hypertension Qualified Code(s): I10 - Essential (primary) hypertension - Plan continue antibiotics, 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
[2020-06-10] MEDS: metroNIDAZOLE 500 MG TAB PO SCH ×2 (15:59→21:10)
[2020-06-10] MEDS ORDERED: metroNIDAZOLE 500 MG in Premix Bag 1 BAG IVPB SCH (16:00)
[2020-06-10] MEDS: Ciprofloxacin 500 MG TAB PO SCH (21:10)
[2020-06-10] MEDS: Amlodipine 5 MG TAB PO SCH (21:10)
[2020-06-10] MEDS: Citalopram 10 MG TAB PO SCH (21:10)
[2020-06-10] MEDS: Donepezil HCl 10 MG TAB PO SCH (21:10)
[2020-06-11] MEDS: Ciprofloxacin 500 MG TAB PO SCH ×2 (05:27→20:05)
[2020-06-11] MEDS: Levothyroxine Sodium 50 MCG TAB PO SCH (05:27)
[2020-06-11] MEDS: Lubiprostone 8 MCG CAP PO SCH ×2 (08:20→18:18)
[2020-06-11] MEDS: Cephalexin 250 MG CAP PO SCH ×3 (08:21→20:06)
[2020-06-11] MEDS: metroNIDAZOLE 500 MG TAB PO SCH ×3 (08:21→20:05)
--- NOTE | 2020-06-11 12:17 | PDOC.HOSPP ---
- Subjective Encounter Date: 06/11/20 Encounter Time: 12:05 Subjective: f/u for general weakness/AVB s/p PM placement and anorexia. - Objective Vital Signs & Weight: Vital Signs (12 hours) Temp Pulse Resp BP Pulse Ox 06/11/20 11:36 97.4 F L 60 20 134/63 97 06/11/20 07:14 98.4 F 62 18 104/56 L 93 L 06/11/20 03:09 98.6 F 60 18 137/65 95 Weight Admit Weight 162 lb 8 oz Weight 158 lb 6.4 oz I&O: 06/10/20 06/11/20 06/12/20 06:59 06:59 06:59 Intake Total 2540 60 Output Total 1095 525 Balance 1445 -465 Result Diagrams: 06/07/20 02:12 06/08/20 07:19 Additional Labs: Accuchecks 06/11/20 06/11/20 06/11/20 11:28 08:13 05:43 POC Glucose 135 H 95 99 06/11/20 06/10/20 06/10/20 00:46 16:32 12:18 POC Glucose 104 141 H 151 H EKG Reviewed by me: Yes (Tele - V-pacing) Hospitalist ROS - Medication Medications: Active Medications Generic Name Dose Route Start Last Admin Trade Name Freq PRN Reason Stop Dose Admin Acetaminophen 650 mg 06/08/20 03:27 06/08/20 03:42 Tylenol PO 650 mg Q4H PRN Administration Headache/Fever or Pain Amlodipine Besylate 5 mg 06/07/20 21:00 06/10/20 21:10 Norvasc PO 5 mg HS TRACEY Administration Cephalexin 250 mg 06/09/20 21:00 06/11/20 08:21 Keflex PO 06/16/20 15:01 250 mg TID TRACEY Administration Ciprofloxacin 500 mg 06/10/20 20:00 06/11/20 05:27 Cipro PO 500 mg 599,1999 TRACEY Administration Citalopram Hydrobromide 10 mg 06/07/20 21:00 06/10/20 21:10 Celexa PO 10 mg HS TRACEY Administration Donepezil HCl 10 mg 06/07/20 21:00 06/10/20 21:10 Aricept PO 10 mg HS TRACEY Administration HCTZ/Losartan Potassium 1 tab 06/11/20 09:00 06/11/20 08:21 Hyzaar 50/12.5 PO 1 tab DAILY TRACEY Administration Levothyroxine Sodium 50 mcg 06/07/20 06:00 06/11/20 05:27 Synthroid PO 50 mcg 0600 TRACEY Administration Lubiprostone 8 mcg 06/07/20 08:00 06/11/20 08:20 Amitiza PO 8 mcg BID-[facility] TRACEY Administration Metronidazole 500 mg 06/10/20 15:00 06/11/20 08:21 Flagyl PO 500 mg TID TRACEY Administration Ondansetron HCl 4 mg 06/06/20 23:05 06/07/20 08:16 Zofran IVP 4 mg Q6H PRN Administration Nausea/Vomiting Pantoprazole Sodium 40 mg 06/07/20 09:00 06/11/20 08:21 Protonix PO 40 mg DAILY TRACEY Administration - Exam General Appearance: NAD, awake alert Eye: PERRL, anicteric sclera ENT: normocephalic atraumatic, no oropharyngeal lesions Neck: supple, symmetric, no JVD, no thyromegaly, no lymphadenopathy Heart: RRR, no gallops, no rubs, normal peripheral pulses Heart - other findings: S1, S2 Respiratory: CTAB, no wheezes, no rales, no ronchi, normal chest expansion, no tachypnea Gastrointestinal: soft, non-tender, non-distended, normal bowel sounds, no palpable masses Extremities: no cyanosis, no clubbing, no edema Skin: normal turgor Neurological: cranial nerve grossly intact, no new deficit Musculoskeletal: normal tone, generalized weakness Psychiatric: normal affect, A&O x 3 Hosp A/P (1) Colitis Code(s): K52.9 - NONINFECTIVE GASTROENTERITIS AND COLITIS, UNSPECIFIED Status : Acute Plan: Resolving, continue Cipro/Flagyl another 48h (2) Second degree heart block Code(s): I44.1 - ATRIOVENTRICULAR BLOCK, SECOND DEGREE Status: Acute Plan: s/p PM placement, normal functioning device currently (3) Anorexia Code(s): R63.0 - ANOREXIA Status: Acute Plan: Improved, continue to encourage po intake, Glucerna TID (4) DM type 2 (diabetes mellitus, type 2) Status: Chronic Qualifiers: Diabetes mellitus halfway insulin use: without vermin exterminator use Diabetes mellitus complication status: without complication Qualified Code(s): E11.9 - Type 2 diabetes mellitus without complications (5) HTN (hypertension) Code(s): I10 - ESSENTIAL (PRIMARY) HYPERTENSION Status: Chronic Qualifiers: Hypertension type: essential hypertension Qualified Code(s): I10 - Essential (primary) hypertension - Plan plan discussed w/ family, continue antibiotics, PT/OT, 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
[2020-06-11] MEDS: Donepezil HCl 10 MG TAB PO SCH (20:05)
[2020-06-11] MEDS: Citalopram 10 MG TAB PO SCH (20:05)
[2020-06-11] MEDS: Amlodipine 5 MG TAB PO SCH (20:05)
[2020-06-12] MEDS: Levothyroxine Sodium 50 MCG TAB PO SCH (05:16)
[2020-06-12] MEDS: Ciprofloxacin 500 MG TAB PO SCH (05:16)
[2020-06-12] MEDS: metroNIDAZOLE 500 MG TAB PO SCH ×2 (09:26→14:45)
[2020-06-12] MEDS: Cephalexin 250 MG CAP PO SCH ×2 (09:26→14:45)
[2020-06-12] MEDS: Lubiprostone 8 MCG CAP PO SCH ×2 (09:26→16:35)
[2020-06-12] MEDS: Ondansetron PF 4 MG/2 ML Vial IVP PRN (10:03)
[2020-06-12 10:49] VITALS: BP 116/58; TEMP 97.8
--- NOTE | 2020-06-12 11:44 | PDOC.HOSPP ---
- Subjective Encounter Date: 06/12/20 Encounter Time: 11:35 Subjective: f/u for generalized weakness, AVB s/p PM placement and abd pain. Overall feels ok. Has not worked with PT today. - Objective Vital Signs & Weight: Vital Signs (12 hours) Temp Pulse Resp BP Pulse Ox 06/12/20 10:48 97.8 F 62 20 116/58 L 96 06/12/20 07:53 97.6 F 63 20 155/77 H 98 06/12/20 07:40 98 06/12/20 04:00 97.9 F 65 18 109/56 L 95 Weight Admit Weight 162 lb 8 oz Weight 157 lb 7 oz I&O: 06/11/20 06/12/20 06/13/20 06:59 06:59 06:59 Intake Total 60 790 Output Total 525 1300 200 Balance -465 -510 -200 Result Diagrams: 06/07/20 02:12 06/08/20 07:19 Additional Labs: Accuchecks 06/12/20 06/11/20 06/11/20 05:21 23:57 16:50 POC Glucose 112 H 118 H 115 H 06/11/20 11:28 POC Glucose 135 H EKG Reviewed by me: Yes (Tele - V-pacing) Hospitalist ROS - Medication Medications: Active Medications Generic Name Dose Route Start Last Admin Trade Name Freq PRN Reason Stop Dose Admin Acetaminophen 650 mg 06/08/20 03:27 06/08/20 03:42 Tylenol PO 650 mg Q4H PRN Administration Headache/Fever or Pain Amlodipine Besylate 5 mg 06/07/20 21:00 06/11/20 20:05 Norvasc PO 5 mg HS TRACEY Administration Cephalexin 250 mg 06/09/20 21:00 06/12/20 09:26 Keflex PO 06/16/20 15:01 250 mg TID TRACEY Administration Ciprofloxacin 500 mg 06/10/20 20:00 06/12/20 05:16 Cipro PO 500 mg 599,1999 TRACEY Administration Citalopram Hydrobromide 10 mg 06/07/20 21:00 06/11/20 20:05 Celexa PO 10 mg HS TRACEY Administration Donepezil HCl 10 mg 06/07/20 21:00 06/11/20 20:05 Aricept PO 10 mg HS TRACEY Administration HCTZ/Losartan Potassium 1 tab 06/11/20 09:00 06/12/20 09:26 Hyzaar 50/12.5 PO 1 tab DAILY TRACEY Administration Levothyroxine Sodium 50 mcg 06/07/20 06:00 06/12/20 05:16 Synthroid PO 50 mcg 0600 TRACEY Administration Lubiprostone 8 mcg 06/07/20 08:00 06/12/20 09:26 Amitiza PO 8 mcg BID-WM TRACEY Administration Metronidazole 500 mg 06/10/20 15:00 06/12/20 09:26 Flagyl PO 500 mg TID TRACEY Administration Ondansetron HCl 4 mg 06/06/20 23:05 06/12/20 10:03 Zofran IVP 4 mg Q6H PRN Administration Nausea/Vomiting Pantoprazole Sodium 40 mg 06/07/20 09:00 06/12/20 09:26 Protonix PO 40 mg DAILY TRACEY Administration - Exam General Appearance: NAD, awake alert Eye: PERRL, anicteric sclera ENT: normocephalic atraumatic, no oropharyngeal lesions Neck: supple, symmetric, no JVD, no thyromegaly Heart: RRR, no gallops, no rubs, normal peripheral pulses Heart - other findings: S1, S2 Respiratory: CTAB, no wheezes, no rales, no ronchi, normal chest expansion, no tachypnea Gastrointestinal: soft, non-tender, non-distended, normal bowel sounds, no palpable masses Extremities: no cyanosis, no clubbing, no edema Skin: normal turgor, no lesions Neurological: cranial nerve grossly intact, no new deficit Musculoskeletal: normal tone, generalized weakness Psychiatric: normal affect, A&O x 3 Hosp A/P (1) Colitis Code(s): K52.9 - NONINFECTIVE GASTROENTERITIS AND COLITIS, UNSPECIFIED Status : Acute Plan: Resolving, anticipate abx another 24h then d/c (2) Second degree heart block Code(s): I44.1 - ATRIOVENTRICULAR BLOCK, SECOND DEGREE Status: Acute Plan: s/p PM placement, stable (3) Anorexia Code(s): R63.0 - ANOREXIA Status: Acute Plan: Improved, Glucerna TID (4) DM type 2 (diabetes mellitus, type 2) Status: Chronic Qualifiers: Diabetes mellitus terminal operations supervisor insulin use: without shelter use Diabetes mellitus complication status: without complication Qualified Code(s): E11.9 - Type 2 diabetes mellitus without complications (5) HTN (hypertension) Code(s): I10 - ESSENTIAL (PRIMARY) HYPERTENSION Status: Chronic Qualifiers: Hypertension type: essential hypertension Qualified Code(s): I10 - Essential (primary) hypertension - Plan continue antibiotics, 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
--- NOTE | 2020-06-12 17:11 | DIS ---
DATE OF ADMISSION: 06/06/2020 DATE OF DISCHARGE: 06/12/2020 DISCHARGE DIAGNOSES: 1. Colitis, suspected, resolving. 2. Second-degree atrioventricular block, status post pacemaker placement, stable. 3. Anorexia, improved. 4. Diabetes mellitus, type 2, stable. 5. Hypertension, stable. 6. Deconditioning. CONSULTATIONS: 1. Dr. Morales with Cardiology Service. 2. Dr. Woodson with Electrophysiology Service. PERTINENT LABORATORY AND X-RAY FINDINGS: Sodium ranged between 133 to 137, potassium ranged between 2.9 to 3.8, magnesium level ranged between 1.8 to 2.0. CBC showed white blood cell count ranging between 7.8 to 11.5. COVID-19 PCR not detected on 06/07/2020. CT of the abdomen and pelvis dated 06/06/2020, showed mild inflammation appearance of the right colon and proximal transverse colon. Constipation. Small hiatal hernia. 2D transthoracic echocardiogram dated 06/08/2020, showed ejection fraction of 55% to 60%. Mild tricuspid regurgitation. HOSPITAL COURSE: The patient was initially admitted after presenting with increased abdominal pain and generalized weakness. The patient was initially managed for questionable colitis, prescribed IV ciprofloxacin and Flagyl. The patient was also given IV fluids and general supportive management. During the patient's initial workup, telemetry monitoring showed second-degree AV block, prompting a consultation with Cardiology Service. The patient was deemed an appropriate candidate for consideration of pacemaker placement due to the second-degree AV block. The patient was evaluated by the Electrophysiology Service and underwent pacemaker placement without complication. Telemetry monitoring showed ventricular paced rhythm with heart rates in the 60s. The patient continued to receive general supportive management including physical therapy for ambulation due to deconditioning and general weakness. Due to the patient's presentation, recent pacemaker placement and current living situation, the patient was deemed an appropriate candidate for ongoing skilled care and will transition to correction care at [facility] after discharge. I have examined the patient at the time of discharge and discussed followup instructions. The patient verbalized understanding and in agreement and ready for discharge on 06/12/2020. DISCHARGE MEDICATIONS: 1. Amitiza 8 mcg p.o. b.i.d. 2. Norvasc 5 mg p.o. at bedtime. 3. Zyrtec 10 mg p.o. daily. 4. Celexa 10 mg p.o. at bedtime. 5. Aricept 10 mg p.o. at bedtime. 6. Glimepiride 1 mg p.o. b.i.d. 7. Levothyroxine 50 mcg p.o. daily. 8. Omeprazole 20 mg p.o. daily. 9. MiraLAX 17 g p.o. daily. 10. Keflex 250 mg p.o. t.i.d. x5 days. FOLLOWUP: The patient may follow up with Dr. Morales in 2 to 3 weeks after discharge. The patient will follow up with Dr. Woodson in 2 weeks after discharge. CONDITION ON DISCHARGE: Stable. ACTIVITY: Ad-janet. Rolling walker with standby assistance. DIET: ADA with Glucerna 1.5 t.i.d. CODE STATUS: Full. DISPOSITION: Discharged to [facility] on 06/12/2020. TIME SPENT: Total time preparing and coordinating discharge, 33 minutes. Job ID: [id number]
== END 2020-06-12 17:00 | DRG 392 ==
LOC: ERS 19:21 → 2NO 21:44 → OBSVTOIN 21:44
PROVIDERS: ADMIT Internal Medicine; ATTEND Internal Medicine
PROC: 4A023N7 Measurement of Cardiac Sampling and Pressure, Left Heart, Percutaneous Approach (ICD-10-PCS; principal; 2020-06-06)
PROC: B2111ZZ Fluoroscopy of Multiple Coronary Arteries using Low Osmolar Contrast (ICD-10-PCS; 2020-06-06)
DX: K52.9 Noninfective gastroenteritis and colitis, unspecified (principal); I44.1 Atrioventricular block, second degree; R63.0 Anorexia; E11.9 Type 2 diabetes mellitus without complications; I10 Essential (primary) hypertension; R53.81 Other malaise; Z20.828 Contact with and (suspected) exposure to other viral communicable diseases; K44.9 Diaphragmatic hernia without obstruction or gangrene; K59.00 Constipation, unspecified; I07.1 Rheumatic tricuspid insufficiency; K21.9 Gastro-esophageal reflux disease without esophagitis; E78.5 Hyperlipidemia, unspecified; E03.9 Hypothyroidism, unspecified; E78.00 Pure hypercholesterolemia, unspecified; G30.9 Alzheimer's disease, unspecified; R00.1 Bradycardia, unspecified; F02.80 Dementia in other diseases classified elsewhere, unspecified severity, without behavioral disturbance, psychotic disturbance, mood disturbance, and anxiety; Z88.8 Allergy status to other drugs, medicaments and biological substances; Z79.4 Long term (current) use of insulin
CPT/HCPCS: 33249; 36415; 36416; 71045; 74177; 76942; 80048; 80053; 81003; 83690; 83735; 83880; 84484; 85025; 87635; 93005; 93306; 96361; 96365; 96367; 96372; 96374; 96375; 96376; C1785; C1898; G0378; J0690; J0744; J1580; J1650; J2001; J2405; J2704; J3010; J3480; Q0162; Q9967; U0003

== ENCOUNTER 2020-12-21 09:39 | Outpatient (CLI) | payer MEDICARE ==
[2020-12-21] MEDS ORDERED: Iopamidol 370 76% 100 ML VIAL ONE (13:12)
== END 2020-12-21 09:40 | disposition home or self-care (01) ==
LOC: BICCT 09:39
PROVIDERS: ATTEND Urology
DX: R31.0 Gross hematuria (principal); N20.0 Calculus of kidney; K44.9 Diaphragmatic hernia without obstruction or gangrene; K57.30 Diverticulosis of large intestine without perforation or abscess without bleeding; N28.9 Disorder of kidney and ureter, unspecified; N32.89 Other specified disorders of bladder; I70.0 Atherosclerosis of aorta; I70.8 Atherosclerosis of other arteries; K55.1 Chronic vascular disorders of intestine
CPT/HCPCS: 74178; Q9967

== ENCOUNTER 2021-03-15 09:26 | Outpatient (CLI) | payer MEDICARE | END 2021-03-15 09:27 | disposition home or self-care (01) | LOC: PET 09:26 | PROVIDERS: ATTEND Psychiatry & Neurology Neurology | DX: G30.1 Alzheimer's disease with late onset (principal) | CPT/HCPCS: 78803; A9552 ==

== ENCOUNTER 2021-04-02 09:14 | Emergency (ER) | payer MEDICARE | END 2021-04-02 11:06 | disposition home or self-care (01) | LOC: ERS 09:14 | DX: S01.411A Laceration without foreign body of right cheek and temporomandibular area, initial encounter (principal); E11.9 Type 2 diabetes mellitus without complications; E78.5 Hyperlipidemia, unspecified; E78.00 Pure hypercholesterolemia, unspecified; K21.9 Gastro-esophageal reflux disease without esophagitis; I10 Essential (primary) hypertension; G30.9 Alzheimer's disease, unspecified; F02.80 Dementia in other diseases classified elsewhere, unspecified severity, without behavioral disturbance, psychotic disturbance, mood disturbance, and anxiety; Z79.84 Long term (current) use of oral hypoglycemic drugs; Z79.899 Other long term (current) drug therapy; W26.8XXA Contact with other sharp object(s), not elsewhere classified, initial encounter | CPT/HCPCS: 12011 ==

== ENCOUNTER 2021-07-04 16:26 | Outpatient (CLI) | payer MEDICARE | END 2021-07-04 16:27 | disposition home or self-care (01) | LOC: CTENTCT 16:26 | PROVIDERS: ATTEND Specialist | DX: J32.9 Chronic sinusitis, unspecified (principal) | CPT/HCPCS: 70486 ==

== ENCOUNTER 2021-08-12 18:37 | Emergency (ER) | payer MEDICARE | END 2021-08-12 22:45 | disposition home or self-care (01) | LOC: ERS 18:37 | DX: R05.9 Cough, unspecified (principal); E11.9 Type 2 diabetes mellitus without complications; K21.9 Gastro-esophageal reflux disease without esophagitis; E78.5 Hyperlipidemia, unspecified; I10 Essential (primary) hypertension; Z79.899 Other long term (current) drug therapy | CPT/HCPCS: 71045 ==

== ENCOUNTER 2021-08-29 09:24 | Outpatient (CLI) | payer MEDICARE ==
[2021-08-29] MEDS ORDERED: Iopamidol-370 76% 500 ML 1 ML ONE (10:03)
== END 2021-08-29 09:25 | disposition home or self-care (01) ==
LOC: BICCT 09:24
PROVIDERS: ATTEND Urology
DX: N28.1 Cyst of kidney, acquired (principal); N28.89 Other specified disorders of kidney and ureter; I51.7 Cardiomegaly; I70.90 Unspecified atherosclerosis; J98.4 Other disorders of lung; K44.9 Diaphragmatic hernia without obstruction or gangrene
CPT/HCPCS: 74170; Q9967

== ENCOUNTER 2022-04-23 08:08 | Outpatient (CLI) | payer MEDICARE | END 2022-04-23 08:09 | disposition home or self-care (01) | LOC: LABBT 08:08 | PROVIDERS: ATTEND Internal Medicine | DX: Z20.822 Contact with and (suspected) exposure to COVID-19 (principal) | CPT/HCPCS: 87811 ==

== ENCOUNTER 2022-04-26 06:08 | Day surgery (SDC) | payer MEDICARE ==
[2022-04-25 14:22] VITALS: BMI 23.1
[2022-04-26] MEDS ORDERED: Lidocaine 1% PF 5 ML VIAL ONE (09:21)
[2022-04-26] MEDS ORDERED: PROPOFOL 200 MG/20 ML VIAL ONE (09:21)
== END 2022-04-26 11:05 | disposition home or self-care (01) ==
LOC: SDC 06:08
PROVIDERS: ATTEND Internal Medicine
PROC: 0DJ08ZZ Inspection of Upper Intestinal Tract, Via Natural or Artificial Opening Endoscopic (ICD-10-PCS; principal; 2022-04-26)
DX: K31.7 Polyp of stomach and duodenum (principal); E11.9 Type 2 diabetes mellitus without complications; Z79.890 Hormone replacement therapy; Z79.899 Other long term (current) drug therapy; Z95.0 Presence of cardiac pacemaker; Z88.5 Allergy status to narcotic agent
CPT/HCPCS: J2704

== ENCOUNTER 2022-05-07 07:18 | Outpatient (CLI) | payer MEDICARE | END 2022-05-07 07:19 | disposition home or self-care (01) | LOC: LABBT 07:18 | PROVIDERS: ATTEND Internal Medicine | DX: K22.5 Diverticulum of esophagus, acquired (principal) | CPT/HCPCS: 87811 ==

== ENCOUNTER 2022-05-10 13:08 | Outpatient (CLI) | payer MEDICARE | END 2022-05-10 13:09 | disposition home or self-care (01) | LOC: RAD 13:08 | PROVIDERS: ATTEND Internal Medicine | DX: K22.5 Diverticulum of esophagus, acquired (principal); R13.10 Dysphagia, unspecified; K21.9 Gastro-esophageal reflux disease without esophagitis; K22.89 Other specified disease of esophagus | CPT/HCPCS: 74220 ==

== ENCOUNTER 2022-06-04 15:23 | Outpatient (CLI) | payer MEDICARE | END 2022-06-04 15:24 | disposition home or self-care (01) | LOC: RAD 15:23 | PROVIDERS: ATTEND Internal Medicine Critical Care Medicine | DX: R06.00 Dyspnea, unspecified (principal) | CPT/HCPCS: 71046 ==

== ENCOUNTER 2022-07-07 09:02 | Emergency (ER) | payer MEDICARE ==
[2022-07-07 09:37] LABS: #Lymphocytes 1.3 thou/uL (1.20-3.40); #Monocytes 0.3 thou/uL (0.11-0.59); #Neutrophils 3.4 thou/uL (1.40-6.50); %Basophils 0.3 % (0.0-1.0); %Eosinophils 0.3 % (0.0-10.0); %Lymphocytes 25.6 % (21.0-51.0); %Neutrophils 67.7 % (42.0-75.0); Hemoglobin 14.2 g/dL (14.0-18.0); Mean Corpuscular HGB CONC 34.9 g/dL (32.0-36.0); Mean Corpuscular Hemoglobin 34.3 pg (27.0-31.0); Mean Corpuscular Volume 98.3 fL (78.0-98.0); Mean Platelet Volume 9.3 fL (7.4-10.4); Platelet Count 129 thou/uL (130-400); RBC Distribution Width 12.3 % (11.5-14.5); Red Blood Cell (RBC) Count 4.15 mill/uL (4.70-6.10); White Blood Cell (WBC) Count 5.1 thou/uL (4.8-10.8)
[2022-07-07 10:05] LABS: ALT (SGPT) 15 U/L (8-55); AST (SGOT) 32 U/L (5-34); Albumin 3.7 g/dL (3.4-4.8); Alkaline Phosphatase 46 U/L (40-110); Anion Gap 17 mmol/L (10-20); BUN (Urea Nitrogen) 16 mg/dL (8.4-25.7); Bilirubin, Total 1.1 mg/dL (0.2-1.2); Calc. Creatinine Clearance 0 mL/min (70-130); Calcium 9.2 mg/dL (7.8-10.44); Carbon Dioxide 21 mmol/L (23-31); Chloride 106 mmol/L (98-107); Estimated GFR 86; Glucose 84 mg/dL (83-110); Potassium 4.5 mmol/L (3.5-5.1); Protein, Total 6.7 g/dL (5.8-8.1); Sodium 139 mmol/L (136-145)
[2022-07-07 10:51] LABS: Bilirubin Negative (Negative); Blood, Urine Negative (Negative); Clarity Turbid (Clear); Glucose, Urine (Dipstick) Normal (Negative); Ketone, Urine 20 mg/dL (Negative); Leukocyte Negative Leu/uL (Negative); Nitrite Negative (Negative); Protein, Urine (Dipstick) Negative (Neg-Trace); Specific Gravity, Urine 1.019 (1.002-1.036); Urobilinogen Normal mg/dL (Less than 2); pH, Urine 6.5 (5.0-9.0)
[2022-07-07 12:01] LABS: CK (CPK) 38 U/L (30-200); Lipase 13 U/L (8-78); Magnesium 2.1 mg/dL (1.6-2.6)
[2022-07-07 17:30] LABS: SARS-CoV-2 NAA Rapid Test Not Detected (NotDetected)
== END 2022-07-07 19:10 ==
LOC: ERS 09:02
DX: R29.898 Other symptoms and signs involving the musculoskeletal system (principal); E11.9 Type 2 diabetes mellitus without complications; K21.9 Gastro-esophageal reflux disease without esophagitis; E78.00 Pure hypercholesterolemia, unspecified; I10 Essential (primary) hypertension; Z79.899 Other long term (current) drug therapy; Z20.822 Contact with and (suspected) exposure to COVID-19
CPT/HCPCS: 51701; 70450; 71045; 81003; 82550; 83605; 83690; 83735; 84484; 93005; 99285; U0002; 80053; 84443; 85025

== ENCOUNTER 2023-05-01 18:17 | Emergency (ER) | payer MEDICARE ==
[2023-05-01 19:05] LABS: #Eosinphils 0.1 thou/uL (0.0-0.7); #Monocytes 0.5 thou/uL (0.11-0.59); #Neutrophils 3.4 thou/uL (1.40-6.50); %Basophils 0.5 % (0.0-1.0); %Eosinophils 1.4 % (0.0-10.0); %Lymphocytes 28.9 % (21.0-51.0); %Monocytes 9.1 % (0.0-10.0); %Neutrophils 59.9 % (42.0-75.0); Mean Corpuscular HGB CONC 35.9 g/dL (32.0-36.0); Mean Corpuscular Hemoglobin 32.7 pg (27.0-31.0); Mean Platelet Volume 10.8 fL (7.4-10.4); Platelet Count 144 10x3/uL (130-400); RBC Distribution Width 13.3 % (11.5-14.5); Red Blood Cell (RBC) Count 3.98 mill/uL (4.70-6.10); White Blood Cell (WBC) Count 5.6 10x3/uL (4.8-10.8)
[2023-05-01 19:32] LABS: ALT (SGPT) 12 U/L (8-55); AST (SGOT) 23 U/L (5-34); Albumin 3.3 g/dL (3.4-4.8); Alkaline Phosphatase 64 U/L (40-110); Anion Gap 13 mmol/L (10-20); BUN (Urea Nitrogen) 16 mg/dL (8.4-25.7); Bilirubin, Total 0.6 mg/dL (0.2-1.2); Calc. Creatinine Clearance 0 mL/min (70-130); Calcium 9.2 mg/dL (7.8-10.44); Carbon Dioxide 21 mmol/L (23-31); Chloride 108 mmol/L (98-107); Estimated GFR 83; Globulin 2.7 g/dL (2.4-3.5); Glucose 87 mg/dL (83-110); Magnesium 1.8 mg/dL (1.6-2.6); Sodium 138 mmol/L (136-145)
[2023-05-01] MEDS ORDERED: LORazepam 2 MG/ML SYR.(CARPUJECT) ONE (20:22)
[2023-05-01 21:29] LABS: Bacteria/HPF None Seen HPF (None Seen); Bilirubin Negative (Negative); Blood, Urine 1+ (Negative); CAUTI Indications for Culture Alt mental st,lethar; Clarity Clear (Clear); Glucose, Urine (Dipstick) Normal (Negative); Ketone, Urine Negative (Negative); Leukocyte Negative Leu/uL (Negative); Nitrite Negative (Negative); Protein, Urine (Dipstick) 50 mg/dL (Neg-Trace); Specific Gravity, Urine 1.026 (1.002-1.036); Squamous Epithelial 0-3 HPF (0-3); WBC/HPF 0-3 HPF (0-3)
[2023-05-01 21:34] LABS: Urine Culture Reflex No No
== END 2023-05-01 22:23 ==
LOC: ERS 18:17
DX: F03.90 Unspecified dementia, unspecified severity, without behavioral disturbance, psychotic disturbance, mood disturbance, and anxiety (principal); E11.9 Type 2 diabetes mellitus without complications; K21.9 Gastro-esophageal reflux disease without esophagitis; I10 Essential (primary) hypertension; E78.00 Pure hypercholesterolemia, unspecified; Z79.899 Other long term (current) drug therapy
CPT/HCPCS: 71045; 80053; 81001; 83605; 83735; 84484; 85025; 93005; J2060; 36415; 96361; 96374

== ENCOUNTER 2023-05-02 09:04 | Inpatient (IN) | payer MEDICARE ==
[2023-05-02 09:31] LABS: #Eosinphils 0.1 thou/uL (0.0-0.7); #Monocytes 0.6 thou/uL (0.11-0.59); #Neutrophils 5.9 thou/uL (1.40-6.50); %Basophils 0.4 % (0.0-1.0); %Monocytes 7.9 % (0.0-10.0); %Neutrophils 73.8 % (42.0-75.0); Hemoglobin 14.1 g/dL (14.0-18.0); Mean Corpuscular HGB CONC 35.3 g/dL (32.0-36.0); Mean Corpuscular Hemoglobin 32.5 pg (27.0-31.0); Mean Corpuscular Volume 91.9 fl (78.0-98.0); Mean Platelet Volume 10.3 fL (7.4-10.4); Platelet Count 160 10x3/uL (130-400); RBC Distribution Width 13.3 % (11.5-14.5); Red Blood Cell (RBC) Count 4.34 mill/uL (4.70-6.10)
[2023-05-02 09:55] LABS: ALT (SGPT) 20 U/L (8-55); AST (SGOT) 26 U/L (5-34); Albumin 3.7 g/dL (3.4-4.8); Alkaline Phosphatase 73 U/L (40-110); Anion Gap 12 mmol/L (10-20); BUN (Urea Nitrogen) 15 mg/dL (8.4-25.7); Bilirubin, Total 0.9 mg/dL (0.2-1.2); Calc. Creatinine Clearance 0 mL/min (70-130); Calcium 9.5 mg/dL (7.8-10.44); Carbon Dioxide 24 mmol/L (23-31); Chloride 107 mmol/L (98-107); Estimated GFR 83; Globulin 2.9 g/dL (2.4-3.5); Glucose 88 mg/dL (83-110); Lipase 17 U/L (8-78); Protein, Total 6.6 g/dL (5.8-8.1); Sodium 139 mmol/L (136-145)
[2023-05-02 10:17] LABS: CKMB 1.1 ng/mL (0-6.6)
[2023-05-02] MEDS ORDERED: Nitroglycerin 2% Ointment 1 INCH/1 GM Packet ONE (11:40)
[2023-05-02] MEDS ORDERED: Aspirin Chewable 81 MG TAB ONE (11:40)
[2023-05-02] MEDS ORDERED: HumaLOG 300 UNITS/3 ML VIAL SC PRN (11:49)
[2023-05-02] MEDS ORDERED: Acetaminophen 325 MG TAB PO PRN (11:49)
[2023-05-02] MEDS ORDERED: Nitroglycerin 0.4 MG TAB (25 Tab Bottle) SL PRN (11:49)
[2023-05-02] MEDS ORDERED: Glucagon 1 MG/ML KIT IM PRN (11:49)
[2023-05-02] MEDS ORDERED: Ondansetron PF 4 MG/2 ML Vial IVP PRN (11:49)
[2023-05-02] MEDS ORDERED: Dextrose 50% Abboject 50 ML SYRINGE SLOW IVP PRN (11:49)
[2023-05-02] MEDS ORDERED: Dextrose 5% in Water 1,000 ML IV PRN (11:49)
[2023-05-02] MEDS ORDERED: LORazepam 2 MG/ML SYR.(CARPUJECT) ONE ×3 (12:04→17:40)
[2023-05-02] MEDS ORDERED: Haloperidol Lactate 5 MG/ML VIAL ONE ×2 (12:04→17:40)
[2023-05-02] MEDS ORDERED: Loratadine 10 MG TAB PO PRN (12:06)
[2023-05-02] MEDS: Haloperidol Lactate 5 MG/ML VIAL IM SCH ×2 (12:27→17:48)
[2023-05-02] MEDS: Lorazepam 2 MG/ML VIAL SLOW IVP SCH ×2 (13:06→17:48)
[2023-05-02 13:19] LABS: Troponin I 0.016 ng/mL (< 0.028)
[2023-05-02] MEDS: Lidocaine 4% Patch TD SCH (14:04)
[2023-05-02] MEDS ORDERED: Acetaminophen 325 MG TAB ONE (15:03)
[2023-05-02 15:49] LABS: Troponin I 0.014 ng/mL (< 0.028)
[2023-05-02] MEDS: Acetaminophen 325 MG TAB PO SCH ×2 (15:49→22:33)
[2023-05-02] MEDS: Lubiprostone 8 MCG CAP PO SCH (15:49)
[2023-05-02] MEDS: Mometasone 100 MCG/Formoterol 5 MCG 120 PUFF INHALER INH SCH (18:05)
[2023-05-02] MEDS: Dextrose 5 % And 0.9 % NaCl 1,000 ML IV SCH (18:07)
[2023-05-02] MEDS: Donepezil HCl 10 MG TAB PO SCH (20:08)
[2023-05-02] MEDS: Rosuvastatin 20 MG TAB PO SCH (20:09)
[2023-05-02] MEDS: Polyethylene Glycol 3350 17 GM Packet PO SCH (20:09)
[2023-05-02] MEDS ORDERED: traZODone HCl 50 MG TAB PO SCH (21:00)
[2023-05-02] MEDS ORDERED: Citalopram 10 MG TAB PO SCH (21:00)
[2023-05-02] MEDS ORDERED: Ketorolac Tromethamine 30 MG/ML VIAL IVP SCH (23:45)
[2023-05-02] MEDS ORDERED: Lorazepam 2 MG/ML VIAL SLOW IVP PRN (23:53)
[2023-05-03] MEDS: Transdermal Patch Removal TOP SCH (01:00)
[2023-05-03] MEDS: Haloperidol Lactate 5 MG/ML VIAL IM SCH ×4 (03:11→17:25)
[2023-05-03 05:14] LABS: #Eosinphils 0.2 thou/uL (0.0-0.7); #Monocytes 0.6 thou/uL (0.11-0.59); #Neutrophils 4.3 thou/uL (1.40-6.50); %Basophils 0.7 % (0.0-1.0); %Eosinophils 3.9 % (0.0-10.0); %Lymphocytes 13.4 % (21.0-51.0); %Monocytes 9.7 % (0.0-10.0); Hemoglobin 12.4 g/dL (14.0-18.0); Mean Corpuscular HGB CONC 34.4 g/dL (32.0-36.0); Mean Corpuscular Hemoglobin 32.2 pg (27.0-31.0); Mean Corpuscular Volume 93.5 fl (78.0-98.0); Mean Platelet Volume 11.1 fL (7.4-10.4); Platelet Count 128 10x3/uL (130-400); RBC Distribution Width 13.6 % (11.5-14.5); Red Blood Cell (RBC) Count 3.85 mill/uL (4.70-6.10)
[2023-05-03] MEDS: Levothyroxine Sodium 50 MCG TAB PO SCH (06:24)
[2023-05-03 06:48] LABS: Anion Gap 17 mmol/L (10-20); BUN (Urea Nitrogen) 15 mg/dL (8.4-25.7); Calc. Creatinine Clearance 59 mL/min (70-130); Calcium 8.6 mg/dL (7.8-10.44); Carbon Dioxide 17 mmol/L (23-31); Cardiac Risk 2.3 (Less than 4.5); Chloride 110 mmol/L (98-107); Cholesterol 109 mg/dl (< 200 Desired); Estimated GFR 89; Glucose 115 mg/dL (83-110); HDL Cholesterol 48 mg/dL (>60 Neg Risk); LDL Cholesterol, Calculated 46 mg/dL; Potassium 3.5 mmol/L (3.5-5.1); Sodium 140 mmol/L (136-145); Triglycerides 76 mg/dL (Less than 150)
[2023-05-03] MEDS: Mometasone 100 MCG/Formoterol 5 MCG 120 PUFF INHALER INH SCH ×2 (06:50→18:56)
[2023-05-03] MEDS: Polyethylene Glycol 3350 17 GM Packet PO SCH ×3 (08:29→21:50)
[2023-05-03] MEDS: Acetaminophen 325 MG TAB PO SCH ×3 (08:31→21:34)
[2023-05-03] MEDS: Dextrose 5 % And 0.9 % NaCl 1,000 ML IV SCH (08:37)
[2023-05-03] MEDS: Lubiprostone 8 MCG CAP PO SCH ×2 (11:46→17:26)
[2023-05-03] MEDS ORDERED: Electrolyte Replacement Protocol 1 EACH FS SCH (12:00)
[2023-05-03] MEDS ORDERED: Potassium Chloride 20 MEQ TAB PO SCH (12:00)
[2023-05-03] MEDS ORDERED: Electrolyte Replacement Protocol FS PRN (12:00)
[2023-05-03 12:23] LABS: Magnesium 1.9 mg/dL (1.6-2.6)
[2023-05-03] MEDS ORDERED: D5 1/2 NS w/20 mEq KCL 1,000 ML IV SCH (12:30)
[2023-05-03] MEDS ORDERED: hydrALAZINE 20 MG/ML VIAL SLOW IVP PRN (12:51)
[2023-05-03] MEDS: Aspirin Chewable 81 MG TAB PO SCH (14:56)
[2023-05-03] MEDS ORDERED: Magnesium 2 GM/50 ML(in water) 2 GM in Premix Bag 1 BAG IVPB SCH (15:00)
[2023-05-03] MEDS: Lidocaine 4% Patch TD SCH (17:23)
[2023-05-03] MEDS: D5 1/2 NS w/20 mEq KCL 1,000 ML IV SCH (17:24)
[2023-05-03] MEDS: Mirtazapine 15 MG TAB PO SCH (21:34)
[2023-05-03] MEDS: Folic Acid 1 MG TAB PO SCH (21:35)
[2023-05-03] MEDS: Rosuvastatin 20 MG TAB PO SCH (21:35)
[2023-05-03] MEDS: Multivit, Therapeutic 1 TAB PO SCH (21:35)
[2023-05-03] MEDS: Donepezil HCl 10 MG TAB PO SCH (21:35)
[2023-05-03] MEDS: Cyanocobalamin (Vitamin B-12) 1,000 MCG TAB PO SCH (21:35)
[2023-05-04] MEDS: Transdermal Patch Removal TOP SCH (01:33)
[2023-05-04] MEDS: Haloperidol Lactate 5 MG/ML VIAL IM SCH ×2 (01:52→06:00)
[2023-05-04] MEDS: Levothyroxine Sodium 50 MCG TAB PO SCH (06:00)
[2023-05-04] MEDS: Mometasone 100 MCG/Formoterol 5 MCG 120 PUFF INHALER INH SCH ×2 (06:54→18:31)
[2023-05-04 09:17] LABS: #Eosinphils 0.3 thou/uL (0.0-0.7); #Monocytes 0.6 thou/uL (0.11-0.59); %Basophils 0.5 % (0.0-1.0); %Eosinophils 5.2 % (0.0-10.0); %Lymphocytes 13.9 % (21.0-51.0); %Monocytes 10.6 % (0.0-10.0); %Neutrophils 69.6 % (42.0-75.0); Hemoglobin 13.8 g/dL (14.0-18.0); Mean Corpuscular HGB CONC 33.5 g/dL (32.0-36.0); Mean Corpuscular Hemoglobin 32.6 pg (27.0-31.0); Mean Corpuscular Volume 97.4 fl (78.0-98.0); Mean Platelet Volume 10.7 fL (7.4-10.4); RBC Distribution Width 13.7 % (11.5-14.5); Red Blood Cell (RBC) Count 4.23 mill/uL (4.70-6.10); White Blood Cell (WBC) Count 5.7 10x3/uL (4.8-10.8)
[2023-05-04 09:27] LABS: Platelet Count 115 10x3/uL (130-400)
[2023-05-04 09:37] LABS: Anion Gap 13 mmol/L (10-20); BUN (Urea Nitrogen) 11 mg/dL (8.4-25.7); Calc. Creatinine Clearance 59 mL/min (70-130); Calcium 8.7 mg/dL (7.8-10.44); Carbon Dioxide 19 mmol/L (23-31); Chloride 109 mmol/L (98-107); Estimated GFR 89; Glucose 132 mg/dL (83-110); Magnesium 2.2 mg/dL (1.6-2.6); Phosphorus 2.1 mg/dL (2.3-4.7); Potassium 3.7 mmol/L (3.5-5.1); Sodium 137 mmol/L (136-145)
[2023-05-04] MEDS ORDERED: Potassium Phosphate 30 MMOL in Sodium Chloride 0.9% 250 ML 250 ML IVPB SCH (11:15)
[2023-05-04] MEDS: Lubiprostone 8 MCG CAP PO SCH ×2 (11:27→16:26)
[2023-05-04] MEDS: Acetaminophen 325 MG TAB PO SCH ×3 (11:28→22:42)
[2023-05-04] MEDS: Polyethylene Glycol 3350 17 GM Packet PO SCH ×2 (11:28→22:44)
[2023-05-04] MEDS: Aspirin Chewable 81 MG TAB PO SCH (11:28)
[2023-05-04] MEDS: K-Phos Neutral 250 MG TAB PO SCH ×3 (12:57→16:26)
[2023-05-04] MEDS: Lidocaine 4% Patch TD SCH (13:04)
[2023-05-04] MEDS: D5 1/2 NS w/20 mEq KCL 1,000 ML IV SCH (13:17)
[2023-05-04] MEDS ORDERED: Electrolyte Replacement Protocol 1 EACH FS SCH (17:00)
[2023-05-04] MEDS ORDERED: PHOS-NAK 1 PKT PACK PO SCH (21:00)
[2023-05-04] MEDS: Rosuvastatin 20 MG TAB PO SCH (22:43)
[2023-05-04] MEDS: Mirtazapine 15 MG TAB PO SCH (22:43)
[2023-05-04] MEDS: Donepezil HCl 10 MG TAB PO SCH (22:43)
[2023-05-04] MEDS: Cyanocobalamin (Vitamin B-12) 1,000 MCG TAB PO SCH (22:43)
[2023-05-04] MEDS: Folic Acid 1 MG TAB PO SCH (22:43)
[2023-05-04] MEDS: Multivit, Therapeutic 1 TAB PO SCH (22:44)
[2023-05-05] MEDS: Transdermal Patch Removal TOP SCH ×2 (01:32→23:07)
[2023-05-05 04:34] LABS: #Eosinphils 0.2 thou/uL (0.0-0.7); #Monocytes 0.8 thou/uL (0.11-0.59); #Neutrophils 4.5 thou/uL (1.40-6.50); %Basophils 0.3 % (0.0-1.0); %Eosinophils 2.4 % (0.0-10.0); %Lymphocytes 16.9 % (21.0-51.0); %Monocytes 12.1 % (0.0-10.0); Hemoglobin 13.4 g/dL (14.0-18.0); Mean Corpuscular Hemoglobin 32.1 pg (27.0-31.0); Mean Platelet Volume 11.3 fL (7.4-10.4); Platelet Count 134 10x3/uL (130-400); RBC Distribution Width 13.4 % (11.5-14.5); Red Blood Cell (RBC) Count 4.17 mill/uL (4.70-6.10); White Blood Cell (WBC) Count 6.6 10x3/uL (4.8-10.8)
[2023-05-05 04:53] LABS: Anion Gap 11 mmol/L (10-20); BUN (Urea Nitrogen) 14 mg/dL (8.4-25.7); Calc. Creatinine Clearance 59 mL/min (70-130); Calcium 8.8 mg/dL (7.8-10.44); Carbon Dioxide 24 mmol/L (23-31); Chloride 108 mmol/L (98-107); Estimated GFR 89; Glucose 115 mg/dL (83-110); Potassium 3.4 mmol/L (3.5-5.1); Sodium 140 mmol/L (136-145)
[2023-05-05 05:51] LABS: Mean Corpuscular Volume 91.8 fl (78.0-98.0)
[2023-05-05] MEDS: Levothyroxine Sodium 50 MCG TAB PO SCH (06:00)
[2023-05-05] MEDS: Mometasone 100 MCG/Formoterol 5 MCG 120 PUFF INHALER INH SCH ×2 (07:38→18:28)
[2023-05-05] MEDS ORDERED: Potassium Chloride 20 MEQ TAB PO SCH (08:00)
[2023-05-05] MEDS: Lubiprostone 8 MCG CAP PO SCH ×2 (09:41→16:36)
[2023-05-05] MEDS: Polyethylene Glycol 3350 17 GM Packet PO SCH ×2 (09:41→20:17)
[2023-05-05] MEDS: Aspirin Chewable 81 MG TAB PO SCH (09:42)
[2023-05-05] MEDS: K-Phos Neutral 250 MG TAB PO SCH ×3 (09:42→16:36)
[2023-05-05] MEDS: Acetaminophen 325 MG TAB PO SCH ×3 (09:44→20:15)
[2023-05-05] MEDS: Lidocaine 4% Patch TD SCH (16:36)
[2023-05-05] MEDS: Donepezil HCl 10 MG TAB PO SCH (20:16)
[2023-05-05] MEDS: Cyanocobalamin (Vitamin B-12) 1,000 MCG TAB PO SCH (20:16)
[2023-05-05] MEDS: Rosuvastatin 20 MG TAB PO SCH (20:17)
[2023-05-05] MEDS: Mirtazapine 15 MG TAB PO SCH (20:17)
[2023-05-05] MEDS: Folic Acid 1 MG TAB PO SCH (20:17)
[2023-05-05] MEDS: Multivit, Therapeutic 1 TAB PO SCH (20:17)
[2023-05-06 04:50] LABS: #Eosinphils 0.2 thou/uL (0.0-0.7); #Monocytes 0.7 thou/uL (0.11-0.59); #Neutrophils 3.8 thou/uL (1.40-6.50); %Basophils 0.6 % (0.0-1.0); %Monocytes 11.4 % (0.0-10.0); %Neutrophils 59.8 % (42.0-75.0); Hemoglobin 13.4 g/dL (14.0-18.0); Mean Corpuscular HGB CONC 34.7 g/dL (32.0-36.0); Mean Corpuscular Hemoglobin 32.2 pg (27.0-31.0); Mean Corpuscular Volume 92.8 fl (78.0-98.0); Mean Platelet Volume 10.5 fL (7.4-10.4); Platelet Count 142 10x3/uL (130-400); RBC Distribution Width 14.1 % (11.5-14.5); Red Blood Cell (RBC) Count 4.16 mill/uL (4.70-6.10); White Blood Cell (WBC) Count 6.4 10x3/uL (4.8-10.8)
[2023-05-06 05:19] LABS: ALT (SGPT) 15 U/L (8-55); AST (SGOT) 20 U/L (5-34); Albumin 3.1 g/dL (3.4-4.8); Alkaline Phosphatase 71 U/L (40-110); Anion Gap 13 mmol/L (10-20); BUN (Urea Nitrogen) 16 mg/dL (8.4-25.7); Bilirubin, Total 0.9 mg/dL (0.2-1.2); Calc. Creatinine Clearance 53 mL/min (70-130); Calcium 9.4 mg/dL (7.8-10.44); Carbon Dioxide 25 mmol/L (23-31); Chloride 106 mmol/L (98-107); Estimated GFR 86; Globulin 2.5 g/dL (2.4-3.5); Glucose 104 mg/dL (83-110); Potassium 3.8 mmol/L (3.5-5.1); Protein, Total 5.6 g/dL (5.8-8.1); Sodium 140 mmol/L (136-145)
[2023-05-06] MEDS: Levothyroxine Sodium 50 MCG TAB PO SCH (06:18)
[2023-05-06] MEDS: Mometasone 100 MCG/Formoterol 5 MCG 120 PUFF INHALER INH SCH ×2 (07:09→19:16)
[2023-05-06] MEDS ORDERED: Magnesium 2 GM/50 ML(in water) 2 GM in Premix Bag 1 BAG IVPB SCH (08:00)
[2023-05-06 08:38] LABS: Bacteria/HPF None Seen HPF (None Seen); Bilirubin Negative (Negative); Blood, Urine Negative (Negative); CAUTI Indications for Culture Dysuria,urgency,freq; Clarity Clear (Clear); Glucose, Urine (Dipstick) Normal (Negative); Ketone, Urine Negative (Negative); Leukocyte Negative Leu/uL (Negative); Nitrite Negative (Negative); Protein, Urine (Dipstick) 10 mg/dL (Neg-Trace); RBC/HPF 0-3 HPF (0-3); Squamous Epithelial None Seen HPF (0-3); WBC/HPF 0-3 HPF (0-3)
[2023-05-06 08:41] LABS: Urine Culture Reflex No No
[2023-05-06] MEDS: Aspirin Chewable 81 MG TAB PO SCH (08:51)
[2023-05-06] MEDS: K-Phos Neutral 250 MG TAB PO SCH ×2 (08:51→12:25)
[2023-05-06] MEDS: Acetaminophen 325 MG TAB PO SCH ×3 (08:51→20:25)
[2023-05-06] MEDS: Polyethylene Glycol 3350 17 GM Packet PO SCH ×2 (08:51→20:25)
[2023-05-06] MEDS ORDERED: Lisinopril 5 MG TAB PO SCH (10:00)
[2023-05-06] MEDS: Lubiprostone 8 MCG CAP PO SCH ×2 (10:15→16:55)
[2023-05-06] MEDS: Lidocaine 4% Patch TD SCH (12:25)
[2023-05-06] MEDS: Donepezil HCl 10 MG TAB PO SCH (20:27)
[2023-05-06] MEDS: Folic Acid 1 MG TAB PO SCH (20:27)
[2023-05-06] MEDS: Mirtazapine 15 MG TAB PO SCH (20:27)
[2023-05-06] MEDS: Multivit, Therapeutic 1 TAB PO SCH (20:28)
[2023-05-06] MEDS: Cyanocobalamin (Vitamin B-12) 1,000 MCG TAB PO SCH (20:28)
[2023-05-06] MEDS: Rosuvastatin 20 MG TAB PO SCH (20:28)
[2023-05-07] MEDS: Transdermal Patch Removal TOP SCH (00:40)
[2023-05-07] MEDS: Levothyroxine Sodium 50 MCG TAB PO SCH (04:55)
[2023-05-07] MEDS: Mometasone 100 MCG/Formoterol 5 MCG 120 PUFF INHALER INH SCH (07:25)
[2023-05-07] MEDS: Aspirin Chewable 81 MG TAB PO SCH (08:32)
[2023-05-07] MEDS: Lubiprostone 8 MCG CAP PO SCH (08:32)
[2023-05-07] MEDS: Polyethylene Glycol 3350 17 GM Packet PO SCH (08:32)
[2023-05-07] MEDS: Acetaminophen 325 MG TAB PO SCH (08:33)
[2023-05-07] MEDS ORDERED: Lisinopril 5 MG TAB PO SCH ×2 (09:00→09:15)
[2023-05-07] MEDS ORDERED: Lisinopril 10 MG TAB PO SCH (09:15)
[2023-05-07 10:34] VITALS: TEMP 98.1
[2023-05-07 12:05] VITALS: BP 156/76
[2023-05-07] MEDS: Lidocaine 4% Patch TD SCH (12:13)
[2023-05-08] MEDS ORDERED: Lisinopril 10 MG TAB PO SCH (09:00)
[2023-05-08] MEDS ORDERED: Lisinopril 5 MG TAB PO SCH (09:00)
[2023-05-10] MEDS ORDERED: Ergocalciferol 1.25 MG(50,000 UNITS) CAP PO SCH (09:00)
== END 2023-05-07 13:59 | DRG 308 ==
LOC: ERS 09:04 → ERHOLD 11:28 → 2NO 19:24 → OBSVTOIN 05-04 13:17
PROVIDERS: ADMIT Internal Medicine Geriatric Medicine; ATTEND Internal Medicine
DX: I47.20 Ventricular tachycardia, unspecified (principal); G93.41 Metabolic encephalopathy; S22.089A Unspecified fracture of T11-T12 vertebra, initial encounter for closed fracture; F02.80 Dementia in other diseases classified elsewhere, unspecified severity, without behavioral disturbance, psychotic disturbance, mood disturbance, and anxiety; R00.1 Bradycardia, unspecified; D69.6 Thrombocytopenia, unspecified; I10 Essential (primary) hypertension; E78.5 Hyperlipidemia, unspecified; E03.9 Hypothyroidism, unspecified; Z66 Do not resuscitate; R13.10 Dysphagia, unspecified; R29.6 Repeated falls; G30.9 Alzheimer's disease, unspecified; E83.42 Hypomagnesemia; S00.412A Abrasion of left ear, initial encounter; W18.30XA Fall on same level, unspecified, initial encounter; Z88.8 Allergy status to other drugs, medicaments and biological substances; Z95.0 Presence of cardiac pacemaker; Z90.79 Acquired absence of other genital organ(s); Z79.890 Hormone replacement therapy; Z79.899 Other long term (current) drug therapy; E87.6 Hypokalemia; E11.649 Type 2 diabetes mellitus with hypoglycemia without coma; E11.9 Type 2 diabetes mellitus without complications; K21.9 Gastro-esophageal reflux disease without esophagitis; E78.00 Pure hypercholesterolemia, unspecified
CPT/HCPCS: 36415; 36416; 70450; 71045; 72125; 72128; 72131; 72170; 80048; 80053; 80061; 81001; 82553; 83605; 83690; 83735; 84100; 84145; 84484; 85025; 93005; 93306; 96361; 96372; 96374; 96375; 96376; G0378; J1630; J1650; J1885; J2060; J3475; J3480; J7042; J7050